=== PATIENT | female | born 1975 | race Caucasian/White ===

== ENCOUNTER 2019-10-18 12:17 | Emergency (ER) | payer BC, SELFPAY ==
--- NOTE | ~2019-10-18 | XR_ITS ---
XR knee LT 3V DATE: 10/18/2019 12:45 INDICATION: Fall. Medial and posterior knee pain TECHNIQUE: 3 views including crosstable lateral COMPARISON: None FINDINGS: Mild suprapatellar knee joint effusion. Diffuse osteopenia. Tricompartment osteoarthritis. Superior pole patellar enthesopathy. No fracture, dislocation, periosteal reaction or bone destruction, radiopaque intra-articular loose b zuleyka or chondrocalcinosis. IMPRESSION: Mild knee joint effusion Tricompartment osteoarthritis Reviewed, dictated and finalized at location A. R ASSOCIATE
[2019-10-18 12:36] VITALS: BP 194/108; PULSE 89; RESP 16; TEMP 36; O2SAT 100
--- NOTE | 2019-10-18 13:26 | ED.LOWEXIN ---
HPI - Extremity Injury (Lower) General Chief Complaint: Extremity Injury, Lower Stated Complaint: knee went out, fell Time Seen by Provider: 10/18/19 12:30 Source: patient Mode of arrival: wheelchair Limitations: no limitations History of Present Illness HPI Narrative: This is a 43 year old female that presents to the ER for left knee pain after an injury today. Reports she was standing in her room and her left knee gave out causing her to fall forward onto the bed. Reports she felt a pop in the knee. Reports since she has had increasing pain in the knee. Reports decreased ROM due to pain. Reports a history of meniscal repair to this knee. Denies hitting her head, loss of consciousness, other injuries, or numbness. Related Data Allergies Allergy/AdvReac Type Severity Reaction Status Date / Time insulin glargine Allergy Unknown Unknown Verified 10/18/19 12:39 Sulfa (Sulfonamide Allergy Unknown Unknown Verified 10/18/19 12:39 Antibiotics) zinc Allergy Unknown Unknown Verified 10/18/19 12:39 Review of Systems Review of Systems: Narrative: CONSTITUTIONAL: Denies fever MUSCULOSKELETAL: Reports joint pain, and myalgia. NEUROLOGIC: Denies numbness All systems reviewed & are unremarkable except as noted in HPI and below PMFSH Past Medical History Medical History (Updated 10/18/19 @ 14:14 by Norma Pagan PA-C) History of diabetes mellitus History of fibromyalgia History of gastroesophageal reflux (GERD) History of hypertension Surgical History Surgical History (Updated 10/18/19 @ 13:27 by Norma Pagan PA-C) Status post arthroscopic surgery of left knee Exam Narrative: Exam Narrative: GENERAL: Well-appearing, well-nourished, and in no acute distress. HEAD: Normocephalic, atraumatic. EYES: EOMI. CHEST: Clear to auscultation. No respiratory distress. No wheezes rales or rhonchi HEART: Regular rate and rhythm. No murmur heard. Normal peripheral pulses. EXTREMITIES: Normal range of motion. No edema, erythema or obvious deformity. Tender to palpation of the left medial joint line. Normal sensation. Normal DP pulses SKIN: Warm, dry, no rash. NEURO: No focal deficits. Alert and oriented x3. PSYCH: Normal mood and affect Course Vital Signs Vital signs: Vital Signs Temperature 96.8 F L 10/18/19 12:36 Pulse Rate 89 02/09/20 12:36 Respiratory Rate 16 10/18/19 12:36 Blood Pressure 194/108 H 10/18/19 12:36 Pulse Oximetry 100 10/18/19 12:36 Temperature 96.8 F L 10/18/19 13:58 Pulse Rate 89 10/18/19 12:36 Respiratory Rate 16 10/18/19 12:36 Blood Pressure 194/108 H 10/18/19 12:36 Pulse Oximetry 100 10/18/19 12:36 MDM - Extremity Injury (Lower) MDM Narrative Medical decision making narrative: Patient presents the emergency department for left knee injury today. Reports history of previous meniscal repair to this knee. Left knee x-ray shows a mild knee joint effusion and arthritis. Patient was updated on case findings. She did not fit in a knee immobilizer, so was given an Anthony wrap and crutches. She is to follow-up with orthopedics. She was given warnings to return to the ER Imaging Data Radiologist's impression: ITS Impressions Knee X-Ray 10/18/19 12:55 IMPRESSION: Mild knee joint effusion Tricompartment osteoarthritis Critical Care Time Critical Care Time Critical Care Time: No Discharge Plan Discharge Clinical Impression: Acute pain of left knee Patient Disposition: Home, Self-Care Condition: Stable Instructions: Knee Sprain (ED) Additional Instructions: Return to the emergency department if you experience fever, redness and swelling of your leg, or any other symptoms that are concerning to you Wear ANTHONY wrap and use crutches. No weight bearing left lower extremity. Rest. Elevate Tylenol as needed for pain. Cyclobenzaprine as needed for pain. Do not take this medication if you are going to drive as this can make you sleepy Follow up
[2019-10-18 13:58] VITALS: TEMP 36
[2019-10-18 14:20] VITALS: BP 178/100; PULSE 88; RESP 18; O2SAT 99
== END 2019-10-18 14:38 | disposition home or self-care (01) ==
PROVIDERS: Emergency Provider Emergency Medicine
DX: M25.562 Pain in left knee (principal); I10 Essential (primary) hypertension; E11.9 Type 2 diabetes mellitus without complications; M79.7 Fibromyalgia; K21.9 Gastro-esophageal reflux disease without esophagitis; M17.12 Unilateral primary osteoarthritis, left knee; W18.39XA Other fall on same level, initial encounter
CPT/HCPCS: 73562; 99283; A9270

== ENCOUNTER 2025-05-31 17:34 | Emergency (ER) | payer BC, SELFPAY ==
--- OUTSIDE RECORDS SUMMARY | 2024-05-21 03:40 | XMS_ITS ---
Author Organization [facility] Address [address] [place], [place] [id number] Care Team Providers Care Crop Or Grain Farmer Name Role Phone CARLOS ISABEL Unavailable [phone] Kota Gustafson Unavailable Unavailable REASON FOR VISIT *Diabetic foot exam check up Encounters Encounter Location Date Provider Diagnosis [facility] [place] [address] [place], [place] [id number] 05/21/2024 CARLOS ISABEL Plan Of Treatment No Information Progress Notes * Oscar LANDRYOB:1975 ([age] yo F)Acc No.[id number]:05/21/2024 Patient: Payton MARTINS Provider: Loretta Isabel DPM :1975 A ge:48 Y S ex:Female Date:05/21/2024 Address:[address] [facility] Subjective: * Chief Complaints: * 1 . *Diabetic foot exam check up. * Medical History: Objective: * Vitals: Assessment: Plan: * Treatment: * Billing Information: * Visit Code: * Procedure Codes: * Electronic signature of CARLOS ISABEL DPM on 05/31/2025 at 05:37 PM CDT Sign off status: Pending * Provider: Loretta Isabel DPM Date: 05/21/2024 Generated for Darwin fermin/Javy/eTjadsmitting on: 05/31/2025 05:37 PM CDT
--- NOTE | ~2025-05-31 | XR_ITS ---
Examination: XR chest 1V portable Clinical History: LE edema, SOB Comparison: 09/24/2017 Technique: Portable AP Findings: Heart size normal. Lungs clear. No acute bony abnormality. IMPRESSION: 1. No acute cardiopulmonary findings given portable technique. Reviewed, dictated and finalized at location R.
--- NOTE | ~2025-05-31 | US_ITS ---
LEFT LOWER EXTREMITY VENOUS DUPLEX Clinical History: edema, erythema COMPARISON: None TECHNIQUE: Grayscale, color, duplex/spectral Doppler sonography left leg FINDINGS/IMPRESSION: 1. DVT within femoral vein and profunda. 2. Remaining left leg veins patent without DVT. Reviewed, dictated and finalized at location R.
--- NOTE | ~2025-05-31 | NM_ITS ---
EXAMINATION: NM lung vent and perfusion DATE: 05/31/2025 22:14 INDICATION: Shortness of breath. Deep venous thrombosis. TECHNIQUE: 9.7 mCi xenon-133 by inhalation and 5.4 mCi Tc-99m MAA by intravenous route. Scintigraphic images of the chest were obtained. COMPARISON: FINDINGS: There is homogeneous radiotracer activity throughout the lungs on the single breath ventilation sequence. There is relatively homogeneous perfusion throughout the lungs. No discrete ventilation and perfusion mismatch is identified. IMPRESSION: 1. Normal study. Very low probability for pulmonary embolism. Reviewed, dictated and finalized at location A.
--- OUTSIDE RECORDS SUMMARY | 2025-05-31 17:37 | XMS_ITS | Encounter Summary ---
Author Organization [facility] Address [address] [place] [address] Care Team Providers Care Map Mounter Name Role Phone Yeimi gardner RN Unavailable Unavailab Jyotsna Paige RN Unavailable Unavailabl Kota Lorenz MD Primary Care Provider + [phone] Wero Segundo MD Unavailable [phone] Brayan Peters DPM Unavailable [phone] Nolberto Nguyen DPT Unavailable [phone] Encounter Details Date Type Department Care Team (Late st Contact Info) Description 05/31/2025 Documentation [facility] Diabetes and Nutrition [address] Social History Tobacco Use Types Packs/Day Years Used Date Smoking Tobacco: Former Vaping Smokeless Tobacco: Never Comments:Smoking History Pac ks/day: 1 Packs/ patient currently only vapes about 5 days a week Alcohol Use Standard Drinks/Week Comments Yes 0 (1 standard drink = 0.6 oz pur e alcohol) AUDIT-C Answer Date Recorded Frequency of Alcohol Consumption Not on file 06/14/2022 Q2: How many drinks containi ng alcohol do you have on a typical day when you are drinking? Patient does not drink Frequency of Binge Drinking Not on file 02/2022 PHQ-2 Answer Date Recorded PHQ-2 Total Score (If total score is 3 or more points, staff should administer the PHQ-9) 0 02/11/2025 Personal Safety Answer Date Recorded Have you ever been in or are you currently in a harmful physical or emotional relationship or is someone making you feel afraid or unsafe? 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 Per letter, she still needs one [facility] visit. Marta Adler RD,[place] documented in this encounter Plan of Treatment Not on file documented as of this encounter Visit Diagnoses Not on filedocumented in this encounter Care Teams Map Mounter Relationship Specialty Start Date End Date Kota Gustafson MD PCP - General 04/14/18 Yeimi Salinas, RN Registered Nurse Pain Management 09/03/17 Jyotsna Moore, RN Registered Nurse 12/02/17 Wero Segundo MD Consulting Physician Nephrology 06/06/18 Brayan Peters DPM Consulting Physician Orthotics 06/24/18 Nolberto Nguyen DPT [address] [facility] [address] Physical Therapist Physical Therapy 06/22/22 documented as of this encounter
--- OUTSIDE RECORDS SUMMARY | 2025-05-31 17:37 | XMS_ITS | Patient Health Record ---
Author Organization [facility] Address [address] [place], [place] [id number] Care Team Providers Care Senior Investment Manager Name Role Phone CARLOS VILLA Unavailable [phone] Kota Gustafson Unavailable Unavailable Allergies Allergen (clinical drug ingredient) Drug/Non Drug Allergy documented on EMR Reaction Allergy Type Onset Date Status Latex Latex Unknown Allergy Active Reason For Referral No Information Medications Medication SIG (Take, Route, Frequency, Duration) Notes Start Date End Date Status Levothyroxine Sodium Active Furosemide Active predniSONE 5 MG/5ML 5 mL Orally Once a day Active Ondansetron Active Methadone HCl Active Cosentyx Active Carvedilol Active Atorvastatin Calcium Active Omeprazole Active Cyclobenzaprine HCl Active Losartan Potassium A ctive Methotrexate Active hydroCHLOROthiazide Active Folic Acid Active cloNIDine Active Entresto Active Isosorbide Mononitrate ER Active HumaLOG Active hydrALAZINE HCl Acti ve Loratadine Active Triamcinolone & Lido-Prilo Active Plan Of Treatment No Information Insurance Providers Payer Name Payer Address Payer Phone Subscriber Number Group Number Insured Name Patient Relationship to Insured Coverage Start Date Coverage End Date [facility] ([facility]) ATTN CLAIMS [address] [place] [address] [id number] Payton Landry Self - patient is the insured Medical (General) History Surgical History Surgery Date(Month/Year) appendectomy Knee scope DNC
--- OUTSIDE RECORDS SUMMARY | 2025-05-31 17:37 | XMS_ITS | Clinical Summary ---
Author Organization [facility] Address [address] [place] [address] Phone Care Team Providers Care Power Plant Mechanic Name Role Phone Kota Gustafson MD Primary Care Provider Allergies Active Allergy Reactions Criticality Noted Date Comments Insulin Glargine Shortness of Breath,Swelling 0 04/17/2016 Sulfa Antibiotics Unknown Zinc Unknown Medications otherIndication s:humulin insulin 1 inj Indications: humulin insulin 1 inj Active lisinopril (PRINIVIL, ZESTRIL) 10 MG Tablet Active insulin lispro (HUMALOG) 100 UNIT/ML Solution by Subcutaneous route 3 times daily (after meals). Use as directed Active insulin NPH (HUMULIN N) 100 UNIT/ML Suspension 45 Units by Subcutaneous route 2 times daily (before meals). Active ibuprofen (MOTRIN) 600 MG Tablet Take 1 Tab by mouth every 6 hours as needed for up to 30 doses. 30 Tab 7 Active methocarbamol (ROBAXIN) 750 MG Tablet Take 1 Tab by mouth 4 times daily as needed for up to 30 doses. 30 Tab 7 Active HYDROcodone-janette taminophen (NORCO) 10-325 MG Tablet Take 1 Tab by mouth every 6 hours as needed for Pain. Active pregabalin (LYRICA) 150 MG Capsule Take 150 mg by mouth 2 times daily. 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 User may not have seen previous data. Height 175.3 cm (5' 9) 06/12/2017 8:25 PM CDT Simultaneous filing. User may not have seen previous data. Body Mass Index 40.61 06/12/2017 8:25 PM CDT Plan of Treatment Health Maintenance Due Date Last Done Comments Diabetes: Eye Exam 1975 Diabetes: Foot Exam 1975 Hepatitis C Virus (HCV) Screening 1975 TdaP Immunization 1975 Hepatitis B Immunization (1 of 3 - 19+ 3-dose series) 11/24/1995 Pneumococcal Immunization Combined (1 of 2 - PCV) 11/24/1995 Pap Smear 1997 Cervical Cancer Screening (CCS) 2006 HPV/Cotest 2006 Diabetes: Nephropathy Screening 04/17/2017 04/17/2016 Diabetes: Hemoglobin A1c 12/09/2018 018, 04/29/2018 Cologuard 2021 Colonoscopy 2021 Colorectal Cancer Screening 2021 Immunochemical Fecal Occult Blood 2021 Influenza Immunization (#1) 2025 SARS-COV-2 Immunization ( - season) 2025 Respiratory Syncytial Virus (RSV) Immunization (Adult) (1 - 1-dose 75+ series) 11/24/2051 Human Papillomavirus (HPV) Immunization Aged Out No longer eligible b ased on patient's age to complete this topic Meningococcal Immunization (ACWY) Aged Out No longer eligible b ased on patient's age to complete this topic Rotavirus Immunization Aged Out No lo nger eligible based on patient's age to complete this topic Procedures Procedure Name Priority Date/Time Associated Diagnosis Comments CMP (COMPREHENSIVE METABOLIC PANEL) STAT 04/17/2016 11:52 PM CDT from Last 3 Months or Most Recently Relevant to Health Maintenance Results * (ABNORMAL) CMP (Comprehensive Metabolic Panel) (04/17/2016 11:52 PM CDT) SODIUM 134 131 - 143 mmol/L 04/18/2016 12:22 AM CDT [facility] POTASSIUM 3.6 3.5 - 5.1 mmol/L 04/18/2016 12:22 AM CDT [facility] CHLORIDE 99(L) 100 - 110 mmol/L 04/18/2016 12:22 AM CDT [facility] CO2, VENOUS 28 22 - 32 mmol/L 04/18/2016 12:22 AM CDT [facility] ANION GAP 10.6 8.0 - 20.0 mmol/L 04/18/2016 12:22 AM CDT [facility] GLUCOSE 108(H) 70 - 105 mg/dL 04/18/2016 12:22 AM CDT [facility] BUN 9(L) 10 - 31 mg/dL 04/18/2016 12:22 AM CDT [facility] CREATININE, BLOOD 0.46(L) 0.60 - 1.30 mg/dL 04/18/2016 12:22 AM CDT [facility] BUN/CREATININE RATIO 20 12 - 20 ratio 04/18/2016 12:22 AM CDT [facility] TOTAL PROTEIN 7.5 6.0 - 8.3 g/dL 04/18/2016 12:22 AM CDT [facility] ALBUMIN 4.2 3.5 - 5.2 g/dL 04/18/2016 12:22 AM CDT [facility] A/G RATIO 1.3 1.0 - 2.0 04/18/2016 12:[address] [facility] CALCIUM 9.4 8.9 - 10.3 mg/dL 04/18/2016 12:[address] [facility] T BILI 0.2(L) 0.3 - 1.2 mg/dL 04/18/2016 12:[address] [facility] SGOT (AST) 14 1 - 32 U/L 04/18/2016 12:[address] [facility] SGPT (ALT) 15 1 - 33 U/L 04/18/2016 12:22 AM CDT [facility] ALKALINE PHOSPHATASE 71 35 - 105 U/L 04/18/2016 12:22 AM CDT [facility] GFR, EST. NONAFRICAN >60 >=60 04/18/2016 12:22 AM CDT [facility] GFR, EST. >60 >=60 04/18/2016 12:22 AM CDT [facility] Comment: Creatinine Clearance is the preferred criteria for selecting drug dose adjustments in renally impaired patients. The GFR is provided as additional pertinent clinical information. GFR is reported in mL/min/1.73 sq m. Blood specimen (specimen) Venipuncture / Unknown 04/17/2016 11:52 PM CDT 04/18/2016 12:04 AM CDT Eduin Duarte MD CHEMISTRY ORDERABLES Fin al Result [facility] [address] [place] [address] from Last 3 Months or Most Recently Relevant to Health Maintenance Insurance [facility] [[email or web address]] Care Teams Power Plant Mechanic Relationship Specialty Start Date End Date Kota Gustafson MD [address] [place] [address] PCP - General Internal Medicine 05/19/18
--- OUTSIDE RECORDS SUMMARY | 2025-05-31 17:37 | XMS_ITS | Encounter Summary ---
Author Organization [facility] Address [address] [place] [address] Phone Care Team Providers Care Animal Surgeon Name Role Phone No, Physician Primary Care Provider Unavailabl e No, Physician Primary Care Provider [phone] Unkown, Unknown Primary Care Provider Unavailabl e No, Physician Primary Care Provider [phone] Yemii Salinas RN Unavailable Unavailab Jyotsna Paige RN Unavailable Unavailabl e Kota Gustafson MD Primary Care Provider + [phone] Kota Gustafson MD Primary Care Provider + [phone] Wero Segundo MD Unavailable [phone] Wero Segundo MD Unavailable [phone] Brayan Peters DPSarah Unavailable [phone] Nolberto Nguyen DPT Unavailable [phone] Encounter Details Date Type Department Care Team (Late st Contact Info) Description 03/08/2011 Orders Only [facility] [address] [place] [address] Scanning, Provider Social History Tobacco Use Types Packs/Day Years Used Date Smoking Tobacco: Heavy Smoker Comments:Smoking History Pac ks/day: 1 Packs Alcohol Use Standard Drinks/Week Comments No 0 (1 standard drink = 0.6 oz pur e alcohol) Comments Unknown Sex and Gender Information Value Date Recorded Sex Assigned at Not on file Legal Sex Female 1:05 AM CERTIFIED JUVENILE PROBATION OFFICER Gender Identity Not on file Sexual Orientation Not on file documented as of this encounter Plan of Treatment Not on file documented as of this encounter Procedures Procedure Name Priority Date/Time Associated Diagnosis Comments SLEEP LAB/STUDY - RESULT 03/08/2011 documented in this encounter Results * SLEEP LAB/STUDY - RESULT (03/08/2011) us Provider Scanning Final Result documented in this encounter Visit Diagnoses Not on filedocumented in this encounter Additional Health Concerns Infection Onset Date Last Indicated Resolved Time COVID: Suspected 01/15/2022 01/15/2022 01/15/2022 3:49 PM CDT COVID: Suspected 09/09/2022 09/09/2022 09/09/2022 8:08 PM CERTIFIED JUVENILE PROBATION OFFICER documented as of this encounter Care Teams Animal Surgeon Relationship Specialty Start Date End Date NO, PHYSICIAN PCP - General 01/03/17 01/20/17 No, Physician PCP - General 01/21/17 01/27/17 Unkown, Unknown PCP - General 01/28/17 02/04/17 No, Physician PCP - General 02/05/17 04/07/18 Kota Gustafson MD PCP - General Internal Medicine 04/08/18 04/13/18 Kota Gustafson MD PCP - General 04/14/18 Yeimi Salinas, KAYDEN Registered Nurse Pain Management 09/03/17 Jyotsna Moore, RN Registered Nurse 12/02/17 Wero Segunod MD Consulting Physician Nephrology 06/06/18 Wero Segundo MD Consulting Physician Nephrology 06/06/18 06/06/18 Brayan Peters DPM Consulting Physician Orthotics 06/24/18 Nolberto Nguyen DPT [address] [place] [address] Physical Therapist Physical Therapy 06/22/22 documented as of this encounter
--- OUTSIDE RECORDS SUMMARY | 2025-05-31 17:37 | XMS_ITS | Encounter Summary ---
Author Organization [facility] Address [address] [place] [address] Phone Care Team Providers Care Engraver Automatic Name Role Phone Yeimi Salinas RN Unavailable Unavailab Jyotsna Paige RN Unavailable UnavailKota Escobar MD Primary Care Provider [phone] Wero Seugndo MD Unavailable [phone] Brayan Peters DPM Unavailable [phone] Nolberto Nguyen DPT Unavailable [phone] Encounter Details Date Type Department Care Team (Late st Contact Info) Description 08/20/2022 Orders Only [facility] [address] [place] [address] Scanning, Provider Social History Tobacco [...] points, staff should administer the PHQ-9) 0 08/10/2021 Comments No Sex and Gender Information Value Date Recorded Sex Assigned at Not on file Legal Sex Female 1:05 AM MARINE REPORTER Gender Identity Not on file Sexual Orientation Not on file documented as of this encounter Plan of Treatment Not on file documented as of this encounter Procedures Procedure Name Priority Date/Time Associated Diagnosis Comments SCAN - LABS 08/20/2022 documented in this encounter Results * SCAN - LABS (08/20/2022) us Provider Scanning Final Result documented in this encounter Visit Diagnoses Not on filedocumented in this encounter Additional Health Concerns Infection Onset Date Last Indicated Resolved Time COVID: Suspected 09/09/2022 09/09/2022 09/09/2022 8:08 PM MARINE REPORTER documented as of this encounter Care Teams Engraver Automatic Relationship Specialty Start Date End Date Kota Gustafson MD PCP - General 04/14/18 Yeimi Salinas, RN Registered Nurse Pain Management 09/03/17 Jyotsna Moore, RN Registered Nurse 12/02/17 Wero Segundo MD Consulting Physician Nephrology 06/06/18 Brayan Peters DPM Consulting Physician Orthotics 06/24/18 Nolberto Nguyen DPT [address] [place] [address] Physical Therapist Physical Therapy 06/22/22 documented as of this encounter
--- OUTSIDE RECORDS SUMMARY | 2025-05-31 17:38 | XMS_ITS | Clinical Summary ---
Author Organization [facility] Address [address] [place] [address] Care Team Providers Care Cost Analyst Name Role Phone Yeimi gardner RN Unavailable Unavailab Jyotsna Paige RN Unavailable Unavailabl Jc Lorenz MD Primary Care Provider [phone]- [phone] Wero Segundo MD Unavailable [phone] Brayna Peters DPM Unavailable [phone] Nolberto Nguyen DPT Unavailable [phone] Allergies Active Allergy Reactions Criticality Noted Date Comments Duloxetine Dizziness,Nausea & Vomiting Low 08/02/2020 Duloxetine Hcl Nausea only Low 05/24/2022 Dizziness Insulin Glargine Shortness of breath,Swelling High 04/17/2016 lantus Metformin Stomach upset Low 04/01/2023 Semaglutide Other (See comments),Nausea & Vomiting,Nausea only Low 03/18/2019 weakness Vomiting Sulfa (Sulfonamide Antibiotics) Sulfacetamide Sodium Unknown Sulfanilamide Other (See comments) Reaction: Unknown, Zinc Unknown Medications glucagon (glucagon) 1 mg kitIndications:Ty pe 2 diabetes mellitus with complication, with long-term current use of insulin (HCC) Use as directed for severe hypoglycemia 2 kit 2 08/02/20 20 Active insulin syringe-needle U-100 (Insulin Syringe) 0.5 mL 29 gauge x 1/2 syringe Use to inject Humalog Insulin per sliding scale. 100 each 03/02/20 22 Active predniSONE (DELTASONE) 5 mg tablet Take 1 tablet (5 mg) by mouth 2 (two) times a day 10/19/19 23 Active blood-glucose meter,continuous (Dexcom G7 Transformer Assembler) misc 1 Device continuously For 10 days e10.65 1 each 1 07/02/20 23 Active methadone (DOLOPHINE) 5 mg tablet TAKE 1/2 TO 1 TAB BY MOUTH THREE TIMES DAILY WITH TYLENOL FOR BAD PAIN CONTROL (REMEMBER ONLY TYLENOL FOR MILD PAIN) 11/21/19 24 Active traMADoL (ULTRAM) 50 mg tablet Take 1-2 tablets (50-100 mg total) by mouth every 8 (eight) hours as needed for pain 10/22/19 24 Active methotrexate, PF, 25 mg/mL preservative free injection 04/22/20 24 Active folic acid (FOLVITE) 1 mg tablet Take 1 tablet (1,000 mcg total) by mouth daily 02/18/20 24 Active cyclobenzaprine (FLEXERIL) 5 mg tablet Take 1 tablet (5 mg total) by mouth 3 (three) times a day as needed for muscle spasms 04/22/20 24 Active insulin syringe-needle U-100 1 mL 31 gauge x 5/16 syringe USE 1 SYRINGE ONCE A WEEK DIRECTED 03/26/20 24 Active hydroxychloroquin e (PLAQUENIL) 200 mg tablet Take 2 tablets (400 mg total) by mouth daily 07/10/20 24 Active insulin pump cart,auto,BT,G6/7 (Omnipod 5 G6-G7 Pods, Gen 5,) cartridge Use to continuously instil insulin, Change Omnipod everyday, Total daily dose 150 units 90 each 3 08/28/20 24 Active atorvastatin (LIPITOR) 20 mg tablet Take 1 tablet (20 mg total) by mouth daily 30 tablet 1 10/29/19 25 Active Dexcom G7 Sensor device Use 1 sensor continuously. Change every 10 days. 9 each 3 11/27/19 25 Active acetaminophen (TYLENOL) 500 mg tablet Take 1 tablet (500 mg total) by mouth 3 (three) times a day Active famotidine (PEPCID) 40 mg tablet Take 1 tablet (40 mg total) by mouth daily Active metoprolol XL (TOPROL-XL) 25 mg extended release tablet Take 1 tablet (25 mg total) by mouth daily 90 tablet 3 12/04/19 25 026 Active levothyroxine (SYNTHROID) 75 mcg tabletIndications :Acquired hypothyroidism Take 1 tablet (75 mcg total) by mouth safety technician before breakfast 90 tablet 1 01/16/20 25 Active insulin lispro (HumaLOG) 200 unit/mL (3 mL) pen for injection Use 200 units of Humalog U-200 insulin in Omnipod. Total daily dose 200 units. 180 mL 3 01/26/20 25 Active multivit-minerals /folic acid (MULTIVITAMIN GUMMIES ORAL) Take 2 each by mouth daily Active clobetasoL (CLOBEX) 0.05 % lotion APPLY A THIN LAYER TOPICALLY TO THE AFFECTED AREA(S) TWO TIMES DAILY 01/03/20 25 Active cloNIDine (CATAPRES) 0.2 mg tabletIndications :Hypertension associated with diabetes (HCC) Take 1 tablet (0.2 mg total) by mouth 2 (two) times a day 60 tablet 5 02/25/20 25 Active predniSONE (DELTASONE) 20 mg tablet Take 2 tablets (40 mg) by mouth 2 (two) times a day 02/06/20 25 Active omeprazole (PriLOSEC) 40 mg capsule Take 1 capsule (40 mg total) by mouth daily Active furosemide (LASIX) 40 mg tabletIndications :Edema, unspecified type Take 1 tablet (40 mg total) by mouth daily 30 tablet 3 05/13/20 25 Active potassium chloride ER (KLOR-CON) 20 mEq CR tablet Take 1 tablet (20 mEq total) by mouth daily 30 tablet 05/20/20 25 Active metOLazone (ZAROXOLYN) 2.5 mg tablet Take 1 tablet (2.5 mg total) by mouth daily 30 tablet 05/24/20 25 025 Active fluconazole (DIFLUCAN) 150 mg tablet Take one tab now. Repeat in 7 days if symptoms persist. 2 tablet 05/24/20 25 Active hydroCHLOROthiazi de 12.5 mg tabletIndications :Primary hypertension Take 2 tablets by mouth daily. 180 tablet 1 04/26/20 25 025 Discontinu ed(Alterna te therapy) cephalexin (KEFLEX) 500 mg capsuleIndication s:Left leg cellulitis Take 1 capsule (500 mg total) by mouth 3 (three) times a day for 10 days 30 capsule 05/14/20 25 025 potassium chloride ER (KLOR-CON) 20 mEq CR tablet Take 1 tablet (20 mEq total) by mouth daily 30 tablet 05/20/20 25 025 Discontinu ed(Reorder ) Active Problems Problem Noted Date Diagnosed Date Mass of soft tissue 02/13/2025 Assessment & Plan (02/13/2025 8:12 PM CDT): Patient has a mass on her back approximately T3 is very painful patient has a lift arms move is warm tender to touch. X-rays were taken confirming soft tissue mass will proceed and get an ultrasound also will proceed in referring this patient to general surgery. Patient also has a mass on right humerus posteriorly Injury of nose 08/14/2024 Assessment & Plan (08/14/2024 5:20 PM CASE ASSEMBLER): Patient's dog jumped on her hit her in the nose injured her nose. She has had some nosebleeds past few days on exam there is no displacement her nasal bone passages open evidence of previous bleed present self-limited condition patient is so advised this should resolve in terms of having recurrent nosebleeds. Open wound of right index finger 08/14/2024 Assessment & Plan (08/14/2024 5:22 PM CASE ASSEMBLER): Treatment as observation at this time no antibiotics. Keep wound clean she has no significant swelling no significant redness no neurovascular compromise full range motion of the finger. Acquired hypothyroidism 04/23/2024 Assessment & Plan (04/23/2024 12:09 PM CDT): This is a chronic condition which is not at goal of TSH between 0.3 to 4.2 mclUnits/ml Personally reviewed lab. Lab Results Component Value Date TSH 6.80 (H) 12/04/2023 TSH 3.30 01/24/2023 TSH 6.13 (H) 07/09/2022 continue Levothryoxine 75 mcg po daily in am Discussed the importance of taking Levothryoxine on a empty stomach, which means one hour before eating or two hours after eating. Discussed food in the stomach will interfere with absorption of Levothyroxine. Discussed Calcium, antacids and iron supplements will interfere with the absorption of Levothyroxine, encouraged to take these at a different time of the day. dexcom continuous glucose monitoring device 04/09 Assessment & Plan (07/30/2024 8:56 AM CASE ASSEMBLER): Continuous glucose monitor (cgm) applied from 07/17/2024 to 07/30/2024 This device was placed for monitor and treatment of blood sugar. Interpretation of data- average glucose 186, 472% time in range. 0 hypoglycemia. 53% hyperglycemia Assessment & Plan (04/23/2024 12:11 PM CDT): Continuous glucose monitor (cgm) applied from to 04/23/2024 This device was placed for monitor and treatment of blood sugar. Interpretation of data- average glucose 197, 42% time in range. 0 hypoglycemia. 58% hyperglycemia Skin ulcer of right great toe 10/26/2023 Assessment & Plan (10/26/2023 11:36 AM CASE ASSEMBLER): Also on right great toe refer to [facility] DCM (dilated cardiomyopathy) 02/06/2023 Assessment & Plan (04/24/2023 2:33 PM CDT): Powder Loader notes reviewed and appreciated discussed with this patient Entresto in the benefits of it which shoe laster is considering on the next visit at making a part of her therapy last ejection fraction was 41% patient did not describe me acute or distress with respect to breathing her activities certainly limited with her joint pains and obesity. Chronic systolic heart failure 02/06/2023 Constipation 12/22/2022 Assessment & Plan (12/22/2022 4:24 PM CDT): Patient complains considerable discomfort and constipation working on a few weeks the [id number] products do help her and she feels better once they work. This time I am starting on Linzess samples 145 mg daily. Patient give me a progress report on effectiveness of medication Cellulitis of right foot 12/07/2022 Assessment & Plan (04/24/2023 2:33 PM CDT): All Cerner great toe is resolving anticipate index 3 weeks it will be totally resolved healing is no strong evidence of active infection at this time Assessment & Plan (12/22/2022 4:15 PM CDT): Cellulitis over top of her foot resolve she is had a callus under the right great toe is very tender to touch to hold toe I suspect she may have some infection below the toe I think she needs possible debridement should refer to podiatry she is a diabetic on insulin pump. Assessment & Plan (12/07/2022 5:28 PM CDT): Cellulitis approximate one-week right foot foot swollen distal 1st medical great toe red blisters form some tenderness palpating. This is not gout. And some redness and irritation just above the right ankle is diabetic she can weight bear with reasonable comfort start on Keflex 500 mg q.i.d. flu can is given x1 day if needed the Keflex for 10 days follow-up visit in 1 week Ankylosing spondylitis 08/13/2022 Assessment & Plan (08/14/2024 5:19 PM CASE ASSEMBLER): Patient remains on Remicade from Rheumatology tolerating medications. Assessment & Plan (04/24/2023 2:38 PM CDT): Patient is under care of rheumatology she is on azathioprine , methotrexate. Injections of Tremtya every 2 months as well as taking tramadol. All this prescribe from rheumatology Assessment & Plan (12/22/2022 4:16 PM CDT): Patient's rheumatological therapy on hold right now secondary to some concerns with referrals. Assessment & Plan (08/13/2022 5:18 PM CASE ASSEMBLER): Patient's advised me the financial systems analyst made a diagnosis of ankylosis spondylitis and possible psoriatic arthritis. She was advised she does not have lupus.. He will be started on medications specifically for these disorders in next few weeks.. Patient is placed on diclofenac. Chronic renal failure, stage 3a 08/13/2022 Overview (10/26/2023): Patient followed by Dr. Dominic Segundo dredge operator supervisor Assessment & Plan (08/13/2022 5:20 PM CASE ASSEMBLER): Patient has had 11 g of protein in her urine. She is under care of Nephrology at this time No diagnosis on Adams I 07/13/2022 Primary hypertension 07/13/2022 Assessment & Plan (07/30/2024 8:39 AM CASE ASSEMBLER): This is a chronic condition which is not at goal upon arrival to the office. At goal after rest. States she has not been taking all of her blood pressure medications. Encouraged her to take her blood pressure medications as ordered. Goal is less than 140/90 Continue CARVEDILOL, CLONIDINE, HCTZ, HYDRALAZINE, ENTRESTO Encouraged to monitor weight and B/P at home. \ Assessment & Plan (04/24/2023 2:27 PM CDT): Blood pressure 148/84 improvement from previous visit patient's morbidly obese blood pressures are acceptable at this time she is multiple other risk factors going on including diabetes obesity significant stress which is improving Assessment & Plan (12/22/2022 4:16 PM CDT): Blood pressure remains reasonably good no change in therapy Assessment & Plan (12/07/2022 5:29 PM CDT): Blood pressure slightly elevated today for have a follow-up blood pressure in 1 week see how much of improvement occurred she is stay on the present medication she does have some discomfort right foot secondary to cellulitis. Assessment & Plan (09/16/2022 4:09 PM CASE ASSEMBLER): BP elevated at 178/94 (90), asymptomatic. No acute findings on exam other than sinusitis. Will increase clonidine to 0.2mg BID, continue all other meds as rxd. Avoid decongestant use. Low salt, low caffeine. Heart healthy exercise and weight loss encouraged. Obstructive sleep apnea 07/13/2022 Chronic cough 07/04/2022 Assessment & Plan (07/04/2022 4:09 PM CDT): See assessment and plan for asthma Patient requested refill on benzonatate Refill sent to pharmacy History of DVT (deep vein thrombosis) 07/04/2022 Assessment & Plan (07/04/2022 4:20 PM CDT): History of DVT in the setting of Lupus Patient reports bilateral lower extremity edema, but reports this is chronic - no acute changes suggestive of acute DVT Physical examination as documented Patient not taking antirheumatic drugs or following rheumatology at this time Will investigate for antiphospholipid syndrome as possible etiology as this can occur with lupus Labs on 06/23/2022 and 06/29/2022 most significant for elevated ESR, elevated lipids, elevated A1c, and elevated ferritin (possibly related to uncontrolled lupus, will have to rechecked once lupus is better controlled) - please refer to chart for specific labs/results Additional labs to investigate patient's complaints ordered as documented below Orders for AMS STAFF to arrange Echocardiogram, Chest Xray, Rosanne Scan, ProBNP, troponin I, d-dimer - shortness of breath, chest pain Lupus anticoagulant, anticardiolipin, [id number] I antibodies - history of DVT, lupus BMP in 1 week to recheck kidney function and potassium - hypertension Referral to pain management - fibromyalgia, chronic pain syndrome Referral to rheumatology - lupus, elevated ESR Orders for Aiden Gil to arrange Continue monitoring symptoms - if anything becomes acutely worse, please go to ER Follow up with pain management as recommended - office will call you, call our office if not heard from pain management in 2 weeks Follow up with rheumatology as recommended - office will call you, call our office if not heard from rheumatology in 2 weeks Follow up next week as scheduled with Dr. Gustafson or sooner if necessary Bilateral lower extremity edema 07/04/2022 Assessment & Plan (05/20/2025 4:57 PM CDT): Patient is seen 90 12/2024 for bilateral edema of the legs left worse than right. She was started on furosemide 40 mg daily. No improvement. Plans at this time increase her furosemide to 40 mg twice a day progress report in 4 days. Wear herself today as well as let me know overweight Saturday using the same scale.. The leg looks better she has less redness she is on antibiotics for cellulitis. Patient is advised me when she was taking methotrexate by mouth it was ineffective she now has giving herself injections at her joint pains have improved significantly. Concerned whether or not she is absorbing Lasix because of the amount of edema throughout her body including her gut she may have to go to furosemide 40 mg injections at home. Patient is given potassium 20 mEq daily. Assessment & Plan (08/13/2022 5:15 PM CASE ASSEMBLER): Bilateral edema is pretty much resolved diuretics at this point Assessment & Plan (07/04/2022 4:20 PM CDT): Chronic problem, uncontrolled Patient reports wearing compression stockings to assist with swelling - although, patient reports not having worn compression stockings recently d/t them cutting into my legs Patient reports that swelling is mildly worse as of late - also reports mild shortness of breath with exertion Physical examination as documented Recommended short course of furosemide, continued use of compression sleeves as tolerated, and elevation of lower extremities Labs on 06/23/2022 and 06/29/2022 most significant for elevated ESR, elevated lipids, elevated A1c, and elevated ferritin (possibly related to uncontrolled lupus, will have to rechecked once lupus is better controlled) - please refer to chart for specific labs/results Additional labs to investigate patient's complaints ordered as documented below Orders for AMS STAFF to arrange Echocardiogram, Chest Xray, Rosanne Scan, ProBNP, troponin I, d-dimer - shortness of breath, chest pain Lupus anticoagulant, anticardiolipin, [id number] I antibodies - history of DVT, lupus BMP in 1 week to recheck kidney function and potassium - hypertension Referral to pain management - fibromyalgia, chronic pain syndrome Referral to rheumatology - lupus, elevated ESR Orders for Aiden Gil to arrange Increase losartan to 100mg daily Monitor blood pressure - report readings consistently >160/90 or <90/60 Maintain low sodium diet Exercise as tolerated Start furosemide daily as needed for swelling - use for 1 week then discontinue, repeat labs in 1 week to recheck kidney function and potassium level Continue monitoring symptoms - if anything becomes acutely worse, please go to ER Follow up with pain management as recommended - office will call you, call our office if not heard from pain management in 2 weeks Follow up with rheumatology as recommended - office will call you, call our office if not heard from rheumatology in 2 weeks Follow up next week as scheduled with Dr. Gustafson or sooner if necessary Chest pain 07/04/2022 Assessment & Plan (07/16/2022 9:08 AM CASE ASSEMBLER): Visit for 07/13/2022, notes reviewed from 07/04/2022. Patient in addition having chest pain progressing over the past 2 months she is having palpitations frequently to chest pain and occurred the same time. Shortness of breath does not appear to be associated with palpitations will request a cardiac rn x2 weeks given the fact that she is having his discomfort a palpitations chest pain 3-5 times per day minimal. Previous EKG reviewed ossific ST changes. ProBNP was negative. Assessment & Plan (07/04/2022 4:20 PM CDT): Present for about 2 months, progressively worsening - see HPI for details Physical examination as documented Suspect this is related to uncontrolled Lupus, not taking any antirheumatic drugs or being managed by rheumatology - likely experiencing a Lupus flare as evidenced by recent ESR of 60 EKG in office - unremarkable, NSR Labs on 06/23/2022 and 06/29/2022 most significant for elevated ESR, elevated lipids, elevated A1c, and elevated ferritin (possibly related to uncontrolled lupus, will have to rechecked once lupus is better controlled) - please refer to chart for specific labs/results Additional labs to investigate patient's complaints ordered as documented below Orders for AMS STAFF to arrange Echocardiogram, Chest Xray, Rosanne Scan, ProBNP, troponin I, d-dimer - shortness of breath, chest pain Lupus anticoagulant, anticardiolipin, [id number] I antibodies - history of DVT, lupus BMP in 1 week to recheck kidney function and potassium - hypertension Referral to pain management - fibromyalgia, chronic pain syndrome Referral to rheumatology - lupus, elevated ESR Orders for Aiden Gil to arrange Increase losartan to 100mg daily Monitor blood pressure - report readings consistently >160/90 or <90/60 Maintain low sodium diet Exercise as tolerated Start prednisone as ordered - complete course, take with breakfast in the morning Continue pain medications as ordered Start furosemide daily as needed for swelling - use for 1 week then discontinue, repeat labs in 1 week to recheck kidney function and potassium level Continue monitoring symptoms - if anything becomes acutely worse, please go to ER Follow up with pain management as recommended - office will call you, call our office if not heard from pain management in 2 weeks Follow up with rheumatology as recommended - office will call you, call our office if not heard from rheumatology in 2 weeks Follow up next week as scheduled with Dr. Gustafson or sooner if necessary History of diverticulitis 10/18/2021 Assessment & Plan (10/18/2021 1:38 PM CASE ASSEMBLER): Patient having some abdominal pain all symptoms of diverticulitis. Up however she has a component of diarrhea at this time start on Lomotil 2.5 mg q.i.d. p.r.n. give her total 20 progress report later in a week. Lymphedema 08/11/2021 Assessment & Plan (08/11/2021 12:47 PM CASE ASSEMBLER): Right lower leg be persistently swollen consistent with lymphedema will refer to [facility] lymphatic[facility]lymphedema clinic SOB (shortness of breath) 08/02/2020 Assessment & Plan (12/22/2022 4:20 PM CDT): Pulmonary note reviewed follow-up CT scans on scheduled patient is also will be seeing Cardiology in the next 2 weeks she had a 41% ejection fracture. Patient's diabetic hypertensive morbidly obese Assessment & Plan (07/16/2022 9:13 AM CASE ASSEMBLER): Patient continues have shortness of breath. Been evaluated for chest pain. Chest x-ray possible interstitial lung disease or atypical pneumonia. Patient's shortness of breath present 2-3 minutes slowly increasing. Patient's peak flow was 550. Refer to pulmonary Assessment & Plan (07/04/2022 3:41 PM CDT): See assessment and plan for chest pain Assessment & Plan (08/02/2020 4:22 PM CASE ASSEMBLER): Patient is reporting chest pain and SOB with minimal activity. EKG done which shows NSR with no acute ST/T wave changes, unchanged from previous. There is concern with her reports of abdominal swelling and weight gain that this may be related to volume overload. We will do CXR to r/o acute volume overload. We will BNP to look for any signs of heart failure. She was encouraged to avoid any excess salt in her diet. Will continue HCTZ at this time. Pending results of testing will most like need additional diuretic therapy. She may also need echo to evaluate for any LV dysfunction and referral to cardiology Abdominal lump 08/02/2020 Assessment & Plan (02/13/2025 8:18 PM CDT): Patient complains of abdominal mass in right pelvic area. Morbidly obese questionable mass left lower quadrant on palpating proceed in getting a CT scan of her pelvis Assessment & Plan (08/02/2020 4:25 PM CASE ASSEMBLER): Patient is reporting feelings of abdominal swelling and distension. Given morbid obesity it is difficult to assess fluid status. She does however, have a 13lb weight gain since her last visit which may suggest fluid. We will do abdominal US to look for any ascites. We will await findings. Annual physical exam 04/29/2020 Assessment & Plan (10/26/2023 11:32 AM CASE ASSEMBLER): History and physical completed patient's health risk assessment health maintenance reviewed in addressed patient has multiple chronic health problems she had a care of multiple specialists including Rheumatology for ankylosis spondylitis endocrinology because of her diabetes type with insulin pump renal because of diabetic kidney disease chronic renal disease stage IIIA. Assessment & Plan (08/13/2022 5:14 PM CASE ASSEMBLER): 46-year-old lady here for annual exam she has multiple chronic health problems. Recently saw rheumatology with did not have lupus but instead has ankylosis spondylitis may have psoriatic arthritis. For a test pending. Patient also saw Dr. Segundo nephrology patient had Lujan g of protein early on laboratory studies. She has been diagnosed with stage II renal failure. Patient is now under care of Endocrinology again she utilizing insulin pump. And she has schedule at some point future to have GI bypass surgery her body mass index is 56.56 present weight 372 lb approximate 5 ft 7. Assessment & Plan (08/11/2021 12:46 PM CASE ASSEMBLER): Patient is here for annual exam not seen by me in least 14 months. She has multiple health problems which addressed during this visit.. Mammogram requested and abnormalities noted and she has been referred ultrasound-guided biopsy her breast. Patient under care of Endocrinology for diabetes. Assessment & Plan (04/29/2020 7:35 PM CDT): Patient physical complete health risk assessment health maintenance reviewed in addressed History of depressed bipolar disorder 04/29/2020 Assessment & Plan (04/24/2023 2:35 PM CDT): Patient describes her mood as being greatly improved she still has some anger she is able to deal with through walking lady herself until she can calm down and other methods she is learned through cognitive behavioral therapy. No psychiatric medications on record. Assessment & Plan (01/19/2022 12:55 PM CDT): Patient advised me that she has discontinue Fe she has had no alcohol for 4-5 month and has not smoked for 4-5 months Assessment & Plan (10/18/2021 1:34 PM CASE ASSEMBLER): Patient is not taking Cymbalta she is taking Lyrica 150 mg twice a day she reports that is maybe improvement in mood concentration is better activities daily living has improved. No crying spells no episodes of deshaun. Continue present therapy Assessment & Plan (08/11/2021 12:50 PM CASE ASSEMBLER): Patient question about Cymbalta at this time she states she can tolerated she is not taking anything for mood would like to resume. Assessment & Plan (08/02/2020 4:27 PM CASE ASSEMBLER): Patient was started on cymbalta at last visit but did not tolerate. Have discussed with Dr. Gustafson and recommends starting effexor nightly and up-titrating as tolerated and needed. Assessment & Plan (04/29/2020 7:40 PM CDT): Patient had treatments for depression and her behavior problems in childhood early teens.. She does not remember medications. He is depressed at this time she has some stress in her life she is a 20-year-old with the daughter 19 year or as minimal autism reported by the patient.. Patient's PHQ-9 score is 19. Start this patient on Cymbalta/duloxetine. Patient has a lot of back pain neuropathy symptoms as well as the depression which duloxetine is effective are indicated fall 3.. Start on 60 mg per day I will see her back in 6 weeks. Tinea cruris 04/29/2020 Assessment & Plan (04/29/2020 7:49 PM CDT): Patient has not had much success with Monistat I wrote a prescription for diclofenac 150 mg x 7 days patient also using nystatin powder. Hypertension associated with diabetes 03/10/2020 Assessment & Plan (08/14/2024 5:16 PM CASE ASSEMBLER): Blood pressure 134/82 Assessment & Plan (04/23/2024 12:04 PM CDT): This is a chronic condition which is at goal. Goal is less than 140/90 Continue carvedilol, clonidine, Lasix, hydralazine, hydrochlorothiazide, Entresto Encouraged to monitor weight and B/P at home. Encouraged to void caffeine and excessive alcohol consumption as this will elevate B/P Assessment & Plan (12/10/2023 3:18 PM CDT): This is a chronic condition which is at goal of less than 140/90 Personally reviewed labs. Continue HCTZ, clonidine, Lasix, hydralazine, sacubitril/valsartan, carvedilol Encouraged to monitor weight and B/P at home Encouraged to take medications as prescribed. Assessment & Plan (10/26/2023 11:33 AM CASE ASSEMBLER): Blood pressure is 130/78 patient is tolerating medications no change in therapy Assessment & Plan (07/02/2023 3:34 PM CDT): This is a chronic condition which is not at goal of less than 140/90 Personally reviewed labs. Continue hydralazine, HCTZ, Entresto, carvedilol, Lasix, clonidine Encouraged to monitor weight and B/P at home Encouraged to take medications as prescribed. States she is not taking medication as prescribed because it makes her too tired Assessment & Plan (10/24/2022 3:19 PM CASE ASSEMBLER): This is a chronic condition which is not at goal of less than 140/90 continue on clonidine, HCTZ, losartan States has not taken blood pressure medications today as she does not take them until 1:00 p.m.. Personally reviewed labs. Encouraged to void caffeine and excessive alcohol consumption as this will elevate B/P Encouraged to monitor weight and B/P at home Encouraged to take medications as prescribed. Assessment & Plan (07/23/2022 4:25 PM CASE ASSEMBLER): This is a chronic condition which is not at goal of less than 140/90 Personally reviewed labs. Continue on clonidine, lasix, HCTZ, losartanEncouraged to void caffeine and excessive alcohol consumption as this will elevate B/P Encouraged to monitor weight and B/P at home Encouraged to take medications as prescribed. Assessment & Plan (07/04/2022 4:19 PM CDT): Chronic problem, uncontrolled Taking losartan 50mg daliy, HCTZ 12.5mg daily, and clonidine 0.1mg daily - blood pressures have been consistently 180+ since 04/2022 Physical examination as documented Recommended increasing losartan to 100mg daily with follow up BMP in 1 week Labs on 06/23/2022 and 06/29/2022 most significant for elevated ESR, elevated lipids, elevated A1c, and elevated ferritin (possibly related to uncontrolled lupus, will have to rechecked once lupus is better controlled) - please refer to chart for specific labs/results Additional labs to investigate patient's complaints ordered as documented below Orders for AMS STAFF to arrange Echocardiogram, Chest Xray, Rosanne Scan, ProBNP, troponin I, d-dimer - shortness of breath, chest pain Lupus anticoagulant, anticardiolipin, [id number] antibodies - history of DVT, lupus BMP in 1 week to recheck kidney function and potassium - hypertension Referral to pain management - fibromyalgia, chronic pain syndrome Referral to rheumatology - lupus, elevated ESR Orders for Aiden Gil to arrange Increase losartan to 100mg daily Monitor blood pressure - report readings consistently >160/90 or <90/60 Maintain low sodium diet Exercise as tolerated Start furosemide daily as needed for swelling - use for 1 week then discontinue, repeat labs in 1 week to recheck kidney function and potassium level Continue monitoring symptoms - if anything becomes acutely worse, please go to ER Follow up with pain management as recommended - office will call you, call our office if not heard from pain management in 2 weeks Follow up with rheumatology as recommended - office will call you, call our office if not heard from rheumatology in 2 weeks Follow up next week as scheduled with Dr. Gustafson or sooner if necessary Assessment & Plan (05/04/2022 2:55 PM CDT): This is a chronic condition which is not at goal Goal is <140/90 Personally reviewed labs. Continue on losartan, HCTZ, clonidine. Avoid caffeine, caffeine will raise blood pressure and excessive alcohol consumption. Monitor your weight and B/P. Encouraged to take medications as prescribed. Assessment & Plan (01/19/2022 12:42 PM CDT): Hypertension very well controlled patient is tolerating medications no change in therapy Assessment & Plan (11/15/2020 4:33 PM CASE ASSEMBLER): Goal blood pressure is less than 140/85 Low salt diet was discussed andd recommended The importance of daily aerobic exercise was also emphasized. Continue current meds, including SLY-I or ARB, e.g. Losartan Assessment & Plan (08/26/2020 10:16 AM CASE ASSEMBLER): BP elevated today. ++ pain d/t fibromyalgia. Advised to take clonidine when she gets home. 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 Advised to check BP at that time. Assessment & Plan (08/02/2020 4:22 PM CASE ASSEMBLER): Blood pressure reasonably well controlled at today's visit will continue present regimen. Assessment & Plan (04/29/2020 7:42 PM CDT): Patient advised me that her blood pressure is going up in afternoon she has gotten readings as high as 200 systolic and 110 diastolic.. She is symptomatic with these blood pressure readings chest pressure and overall uncomfortable.. She takes her medicine twice a day and ventrally 2nd blood pressure medicine will kick in in lower pressure. She also will lie down this will help with her blood pressure. She is also advised me she is under stress with a 19-year-old daughter who is a risk challenging her.. Advised patient start clonidine/Catapres 0.1 mg which she has symptoms knows that her blood pressures up in afternoon.. To keep a track of her blood pressure readings using the clonidine. She continues all of her other blood pressure medicines was see her in 6 weeks. Assessment & Plan (04/15/2020 1:04 PM CDT): BP still elevated despite taking medication. Increase Losartan to 100 mg daily Increase hydrochlorothiazide to 25 mg daily Check home BP and follow up with PCP Assessment & Plan (03/10/2020 11:55 AM CDT): Asx hypertension. Restart losartan 50 mg. Check home BP daily. Schedule appt with PCP and nephrology this month. Follow up with me in one month. DASH diet provided. Needs to reduce sodium intake. Will check labs. Omnipod insulin pump 06/10/2018 Assessment & Plan (01/27/2025 1:12 PM CDT): This is a chronic condition which is worsening, inadequately controlled, not at goal. Download reviewed. From 01/14/2025 to 01/27/2025 Type of insulin pump- omnipod dash with humalog U200 Pump settings : Basal 0000-increased 2.2 units IC -5 ISF -20 Active insulin time 3hrs. TARGET GLUCOSE 90 Avg Total daily insulin- 80 units daily Avg daily basal -62 units (78%) Avg daily bolus -17 units (22%) Interpretation of data- In target range 17% without hypoglycemia. 83% hyperglycemia. Average glucose- 232 Assessment & Plan (07/30/2024 8:55 AM CASE ASSEMBLER): This is a chronic condition which is worsening, inadequately controlled, not at goal. Download reviewed. From 07/24/2024 to 07/30/2024 Type of insulin pump- omnipod dash with humalog U200 Pump settings : Basal 0000-increased 2.2 units IC -5 ISF -20 Active insulin time 3hrs. TARGET GLUCOSE 90 Avg Total daily insulin- 70 units daily Avg daily basal -52 units (75%) Avg daily bolus -17 units (25%) Interpretation of data- In target 47% without hypoglycemia. Average glucose- 186. 53% hyperglycemia. Assessment & Plan (04/23/2024 12:06 PM CDT): This is a chronic condition which is worsening, inadequately controlled, not at goal. Download reviewed. From 04/10/2024 to 04/23/2024 Type of insulin pump- omnipod dash with humalog U200 Pump settings : Basal 0000-increased 2.2 units IC -5 ISF -20 Active insulin time 3hrs. TARGET GLUCOSE 90 Avg Total daily insulin-59units daily Avg daily basal -45 units (77%) Avg daily bolus -23 nits (14%) Interpretation of data- In target 42% without hypoglycemia. Average glucose- 197. 58% hyperglycemia. Assessment & Plan (12/10/2023 3:23 PM CDT): This is a chronic condition which is worsening, inadequately controlled, not at goal. Download reviewed. From to 12/10/23 Type of insulin pump- omnipod dash with humalog U200 Pump settings : Basal 0000-2 IC -5 ISF -20 Active insulin time 3hrs. TARGET GLUCOSE 90 Avg Total daily insulin-78units daily Avg daily basal -50units (64%) Avg daily bolus -28 nits (36%) Interpretation of data- In target 24% without hypoglycemia. Average glucose- 226. 76% hyperglycemia. Assessment & Plan (07/02/2023 3:37 PM CDT): This is a chronic condition which is improving, inadequately controlled, not at goal. Download reviewed. Type of insulin pump- omnipod dash with humalog U200 Pump settings : Basal 0000-2 IC -5 ISF -20 Active insulin time 3hrs. TARGET GLUCOSE 90 Avg Total daily insulin-74 units daily Avg daily basal -47units (63%) Avg daily bolus - 27units (37%) Interpretation of data- In target 8% without hypoglycemia. Average glucose- 259. 92% hyperglycemia. Assessment & Plan (04/01/2023 7:35 PM CDT): This is a chronic condition which is improving, inadequately controlled, not at goal. Download reviewed. Type of insulin pump- omnipod dash with humalog. Will switch insulin to humalog u200. Will bring pump to office once she gets her u200 humalog and we will adjust settings Pump settings : Basal 0000-3.6--at max basal setting IC -5 ISF -20 Active insulin time 3hrs. TARGET GLUCOSE 90 Avg Total daily insulin-114 units daily Avg daily basal -83units (72%) Avg daily bolus - 32units (28%) Continuous glucose monitor (cgm) applied from 03/19/2023 to 04/01/2023 This device was placed for monitor and treatment of blood sugar. Interpretation of data- In target 3% without hypoglycemia. Average glucose- 268. 97% hyperglycemia. Will add Humalog U200 to omnipod in order to improve blood sugars. Assessment & Plan (10/24/2022 3:21 PM CASE ASSEMBLER): This is a chronic condition which is improving, inadequately controlled, not at goal. Download reviewed. Type of insulin pump- omnipod dash. Would like to proceed to Dexcom 7 when available Pump settings : Basal 0000-3.6--at max basal setting IC -5 ISF -20 Active insulin time 3hrs. TARGET GLUCOSE 90 Avg Total daily insulin-123 units daily Avg daily basal -83units (68%) Avg daily bolus - 40units (32%) Continuous glucose monitor (cgm) applied from 10/12/2022 to 10/25/2022 This device was placed for monitor and treatment of blood sugar. Interpretation of data- In target 8% without hypoglycemia. Average glucose- 230. Assessment & Plan (07/23/2022 4:29 PM CASE ASSEMBLER): This is a chronic condition which is uncontrolled with hyperglycemia, not at goal. Download reviewed. Type of insulin pump- omnipod Pump settings : Basal 0000-3.6 IC -5 ISF -20 Active insulin time 3hrs. TARGET GLUCOSE 90 Avg Total daily insulin-123 units daily Avg daily basal -81units (66%) Avg daily bolus - 41units (34%) Continuous glucose monitor (cgm) applied from 07/11/2022 to 07/24/2022 This device was placed for monitor and treatment of blood sugar. Interpretation of data- In target 0.4% without hypoglycemia. Average glucose- 3331. Started bydureon. Assessment & Plan (05/04/2022 3:00 PM CDT): This is a chronic condition which is uncontrolled with hyperglycemia, not at goal. Download reviewed. Type of insulin pump- [employer] 630G Pump settings : Basal 0000-3.40, 0600-3.60 IC -5 ISF -20 Active insulin time 3hrs. TARGET GLUCOSE 90-180 Avg Total daily insulin-89 units daily Avg daily basal -85 units (96%) Avg daily bolus - 4 units (4%) Set change every 6 days Dane change 3 days. Assessment & Plan (08/26/2020 10:18 AM CASE ASSEMBLER): Continue basal rate of 3 units per hour IC 5. Instructed to enter 20-45-60 grams depending on size of meals. SF 20 T 100 AI 3 Suspend on low set at 80. She is to upload pump in 2 weeks Assessment & Plan (04/15/2020 1:02 PM CDT): Increase basal rate to 3.0. Lower SF to 10. Change AI to 3 hours Assessment & Plan (03/10/2020 11:53 AM CDT): Increase basal to 2.8 units per hour. Lower target for correction to 100. Advised to enter correction for BG tid and for all po carbs. Assessment & Plan (01/16/2019 11:39 AM CDT): Add basal of 2.8 from 9 pm to 1 am. Change IC to 2.5, SF to 10, T to 110. Assessment & Plan (09/27/2018 12:52 PM CASE ASSEMBLER): Current settings appropriate. No change. Advised to use the extended boluse, either 50% at the meal and 50% over the next 2-3 hours. Assessment & Plan (06/10/2018 10:50 AM CDT): Decrease basal to 2.7 over 24 hours. Diabetic neuropathy 05/19/2018 Assessment & Plan (04/15/2020 1:09 PM CDT): Evaluation with neuro advised as gabapentin and amitriptyline not effects and she feels pain is interfering with ADL Assessment & Plan (05/19/2018 6:28 PM CDT): . 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 Review of her chart shows that her urine for microalbuminuria was 82 1 month ago is now 2289. Patient's serum creatinine 1 month ago was less than 1. Will make appropriate referral to Nephrology to manage this problem. Persistent microalbuminuria associated with type 2 diabetes mellitus 04/29/2018 Assessment & Plan (12/10/2023 3:18 PM CDT): This is a chronic condition which continues Continue to follow with Dr. Segundo for chronic kidney disease Assessment & Plan (08/13/2022 5:15 PM CASE ASSEMBLER): Patient is not under care of Endocrinology Dr. Lang/Twila Hsu nurse practitioner. And Dr. Dominic Segundo dredge operator supervisor Assessment & Plan (05/15/2022 5:43 PM CDT): discussed labs. Amb. Referral to Dr. Segundo for microalbuminurea. Latest Reference Range & Units 05/12/22 10:21 Albumin, Ur mg/L 3,619.3 Creatinine Ur mg/dL 74.7 Albumin Creatinine Ratio, Ur 1 - 29 mg/g 4,845 (H) Assessment & Plan (11/15/2020 4:34 PM CASE ASSEMBLER): The risk of progression to progressing to chronic kidney failure and ESR was discussed\ Adequate glycemic control was emphasized The patient is already on losartan Assessment & Plan (04/29/2018 3:54 PM CDT): Renal consultation Start Losartan Needs better DM control Mixed diabetic hyperlipidemi a associated with type 2 diabetes mellitus 04/29/2018 Assessment & Plan (01/27/2025 1:52 PM CDT): >>ASSESSMENT AND PLAN FOR HYPERLIPIDEMIA ASSOCIATED WITH TYPE 2 DIABETES MELLITUS (HCC) WRITTEN ON 09/27/2018 1:00 PM BY MAISHA VAZ NP Focus on diet and exercise. Assessment & Plan (01/27/2025 1:52 PM CDT): >>ASSESSMENT AND PLAN FOR HYPERLIPIDEMIA ASSOCIATED WITH TYPE 2 DIABETES MELLITUS (HCC) WRITTEN ON 01/16/2019 11:28 AM BY MAISHA VAZ NP Trigs elevated, LDL at goal. Needs to focus on reducing BG. Assessment & Plan (01/27/2025 1:52 PM CDT): >>ASSESSMENT AND PLAN FOR HYPERLIPIDEMIA ASSOCIATED WITH TYPE 2 DIABETES MELLITUS (HCC) WRITTEN ON 04/15/2020 1:05 PM BY MAISHA VAZ NP Start Atorvastatin 20 mg Assessment & Plan (01/27/2025 1:52 PM CDT): >>ASSESSMENT AND PLAN FOR HYPERLIPIDEMIA ASSOCIATED WITH TYPE 2 DIABETES MELLITUS (HCC) WRITTEN ON 04/29/2020 7:37 PM BY JC GUSTAFSON MD Patient under care of Endocrinology I reviewed most recent Endocrinology notes. She does have neuropathy electrical superintendent recommended she see the neurologist Dr. Rohan Bowles referral is being made Assessment & Plan (01/27/2025 1:52 PM CDT): >>ASSESSMENT AND PLAN FOR HYPERLIPIDEMIA ASSOCIATED WITH TYPE 2 DIABETES MELLITUS (HCC) WRITTEN ON 08/26/2020 9:29 AM BY MAISHA VAZ NP At goal on current medications. Continue statin therapy. Assessment & Plan (01/27/2025 1:52 PM CDT): >>ASSESSMENT AND PLAN FOR HYPERLIPIDEMIA ASSOCIATED WITH TYPE 2 DIABETES MELLITUS (HCC) WRITTEN ON 05/04/2022 2:56 PM BY TWILA HSU NP This is a chronic condition which is not at goal. Goal is less than 70. Personally reviewed lipid panel. Lab Results Component Value Date LDLCALC 79 10/31/2018 Encouraged to eat healthy, include fresh fruits and vegetables daily and avoid eating fried foods more than once per week. Encouraged to take medications as prescribed. Assessment & Plan (01/27/2025 1:52 PM CDT): >>ASSESSMENT AND PLAN FOR HYPERLIPIDEMIA ASSOCIATED WITH TYPE 2 DIABETES MELLITUS (HCC) WRITTEN ON 07/16/2022 9:08 AM BY JC GUSTAFSON MD Patient's blood pressure has improved. Field Party Manager notes reviewed most recent glucose levels 9.9/glucose average 235. Patient also was will be seeing Nephrology in the next 2 weeks patient has evidence of lupus nephritis laboratory studies shows 11 g of protein a 24 urine collection compared to 3.2 g years ago. Assessment & Plan (01/27/2025 1:52 PM CDT): >>ASSESSMENT AND PLAN FOR HYPERLIPIDEMIA ASSOCIATED WITH TYPE 2 DIABETES MELLITUS (HCC) WRITTEN ON 12/10/2023 3:18 PM BY TWILA HSU NP This is a chronic condition which is not at goal of LDL less than 70 Continue atorvastatin Encouraged to eat healthy, include fresh fruits and vegetables daily and avoid eating fried foods more than once per week. Encouraged to take medications as prescribed. Assessment & Plan (01/27/2025 1:52 PM CDT): >>ASSESSMENT AND PLAN FOR HYPERLIPIDEMIA ASSOCIATED WITH TYPE 2 DIABETES MELLITUS (HCC) WRITTEN ON 04/23/2024 12:04 PM BY TWILA HSU NP This is a chronic condition which is not at goal . Goal is LDL less than 70 Continue atorvastatin Encouraged to eat healthy, include fresh fruits and vegetables daily and avoid eating fried foods more than once per week. Assessment & Plan (07/30/2024 8:38 AM CASE ASSEMBLER): This is a chronic condition which is not at goal . Goal is LDL less than 70 Continue atorvastatin Encouraged to eat healthy, include fresh fruits and vegetables daily and avoid eating fried foods more than once per week. Class 3 severe obesity due t o excess calories with serious comorbidity and body mass index (BMI) of 50.0 to 59.9 in adult 04/29/2018 Assessment & Plan (01/27/2025 1:53 PM CDT): >>ASSESSMENT AND PLAN FOR OBESITY, MORBID, BMI 50 OR HIGHER (CMS/HCC) ([facility]) WRITTEN ON 09/27/2018 12:53 PM BY MAISHA VAZ NP Provided with resources for wt loss surgery programs. Assessment & Plan (01/27/2025 1:53 PM CDT): >>ASSESSMENT AND PLAN FOR OBESITY, MORBID, BMI 50 OR HIGHER (CMS/HCC) ([facility]) WRITTEN ON 01/16/2019 11:30 AM BY MAISHA VAZ NP Importance of following diet and exercising discussed. Health food options discussed. Needs to make better effort. Bariatric surgery discussed. Assessment & Plan (01/27/2025 1:53 PM CDT): >>ASSESSMENT AND PLAN FOR OBESITY, MORBID, BMI 50 OR HIGHER (CMS/HCC) ([facility]) WRITTEN ON 04/29/2020 7:38 PM BY JC GUSTAFSON MD Morbid obesity patient's referred to [facility]. He has given some thought to it in at this point she is willing to accept this is a part of therapy did may improve her overall health including diabetes in joint pains. Assessment & Plan (01/27/2025 1:53 PM CDT): >>ASSESSMENT AND PLAN FOR OBESITY, MORBID, BMI 50 OR HIGHER (CMS/HCC) ([facility]) WRITTEN ON 05/04/2022 2:47 PM BY TWILA HSU NP This is a chronic condition which is improving 16lb weight loss since last office visit. Maybe related to high a1c levels. Assessment & Plan (01/27/2025 1:53 PM CDT): >>ASSESSMENT AND PLAN FOR OBESITY, MORBID, BMI 50 OR HIGHER (CMS/HCC) (HCC) WRITTEN ON 07/16/2022 9:11 AM BY JC GUSTAFSON MD Patient is under care of [facility] in [facility] bariatric surgery Department anticipate getting bariatric surgery in the next 30-90 days depending on her surgical clearance. Multiple health problems lupus, lupus nephritis,diabetes not controlled which may very. Well improve with bariatric surgery Assessment & Plan (01/27/2025 1:53 PM CDT): >>ASSESSMENT AND PLAN FOR OBESITY, MORBID, BMI 50 OR HIGHER (CMS/HCC) (HCC) WRITTEN ON 07/23/2022 4:23 PM BY TWILA HSU NP This is a chronic condition which is worsening Weight increased by 13lbs since her last office visit encouarged weight loss and exercise Does not tolerate ozempic. Will start bydureon as she reports loosing 70lbs on it in the past. Assessment & Plan (01/27/2025 1:53 PM CDT): >>ASSESSMENT AND PLAN FOR OBESITY, MORBID, BMI 50 OR HIGHER (CMS/HCC) (HCC) WRITTEN ON 08/13/2022 5:16 PM BY JC GUSTAFSON MD Patient under care [facility] in [place] area tricks surgery. 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 Assessment & Plan (01/27/2025 1:53 PM CDT): >>ASSESSMENT AND PLAN FOR OBESITY, MORBID, BMI 50 OR HIGHER (CMS/HCC) (HCC) WRITTEN ON 04/01/2023 7:41 PM BY TWILA HSU, COLE This is a chronic condition which is worsening. 6lb weight gain since last office visit. Encouraged follow up with bariatric surgeon again. Assessment & Plan (01/27/2025 1:53 PM CDT): >>ASSESSMENT AND PLAN FOR OBESITY, MORBID, BMI 50 OR HIGHER (CMS/HCC) ([facility]) WRITTEN ON 04/24/2023 2:29 PM BY JC GUSTAFSON MD Patient is encouraged again to follow through with bariatric surgery she has communicated with him in the past multiple health problems she is trying to address it once.. Understands the bariatric surgery would benefit her in weight loss would help her in many ways hypertension diabetes joint problems. Assessment & Plan (01/27/2025 1:53 PM CDT): >>ASSESSMENT AND PLAN FOR OBESITY, MORBID, BMI 50 OR HIGHER (CMS/HCC) ([facility]) WRITTEN ON 12/10/2023 3:22 PM BY TWILA HSU NP This is a chronic condition which is worsening 13 lb weight gain since last office visit Encouraged healthy eating Activity is limited due to arthritis Assessment & Plan (01/27/2025 1:53 PM CDT): >>ASSESSMENT AND PLAN FOR OBESITY, MORBID, BMI 50 OR HIGHER (CMS/HCC) ([facility]) WRITTEN ON 04/23/2024 12:04 PM BY TWILA HSU NP This is a chronic condition which continues One lbs. Weight loss since last office visit Encouraged healthy eating which includes a low carb diet. Avoiding processed foods, sweets and fried foods. Encouraged 30 minutes of walking at least 5 days per week Discussed that exercise can be broken down into small sessions- for example 2- 15 minutes sessions or 3- 10 minutes sessions. Assessment & Plan (08/14/2024 5:19 PM CASE ASSEMBLER): Endocrinology notes reviewed patient continues to lose weight or Mounjaro. She has consider weight loss surgery. Insurance denied surgery according to the patient in the last several months Assessment & Plan (07/30/2024 8:40 AM CASE ASSEMBLER): This is a chronic condition which continues to improve 9lbs. Weight loss since last office visit Encouraged healthy eating which includes a low carb diet. Avoiding processed foods, sweets and fried foods. Encouraged 30 minutes of walking at least 5 days per week Discussed that exercise can be broken down into small sessions- for example 2- 15 minutes sessions or 3- 10 minutes sessions. Chronic pain syndrome 04/16/2018 Assessment & Plan (03/09/2022 4:37 PM CDT): Patient a flare for low back pain I gave her a 12 tramadol several weeks to months ago she is having more pain amended give her 20 tramadol. Major part of problem she is morbidly obese body mass index of 55 Assessment & Plan (04/16/2018 1:36 PM CDT): Patient goes to the [facility] Clinic at [facility] Dr. Pizano she is on hydrocodone for chronic pain mainly over knee she does have a diagnosis of fibromyalgia and she also takes Lyrica. History of lupus 04/16/2018 Assessment & Plan (04/29/2020 7:43 PM CDT): Patient advised me her electrical superintendent suggested she see Dr. Coronado because of changes in her rashes and more joint pain referral rheumatology made. Assessment & Plan (04/16/2018 1:37 PM CDT): Patient states she has a history of lupus she was never treated this typically for this she had had an appointment with the Endocrinology but because of insurance issues did not follow through on this. She is planning on make an appointment with an electrical superintendent in the near future. I did no lab work to pursue this diagnosis. Migraine with aura 04/16/2018 Assessment & Plan (04/16/2018 1:43 PM CDT): Patient migraine headaches in frequently she uses ibuprofen this works sometimes she has used Excedrin migraine which works about 30% of the time. It past she used the nasal spray sumatriptan which worked about is 50-60% of the time. The cost of sumatriptan became issue. Will discuss on next visit resuming possible sumatriptan type products by mouth. Primary osteoarthritis of left knee 02/11/2017 Type 2 diabetes mellitus wit h hyperglycemia, with long-term current use of insulin 06/01/2016 Assessment & Plan (08/14/2024 5:20 PM CASE ASSEMBLER): Field Party Manager notes reviewed from 07/30/2024. Patient is making positive progress regarding diabetes. Assessment & Plan (07/30/2024 8:38 AM CASE ASSEMBLER): This is a chronic condition which is improving but not at goal . Goal is less than 7%. Personally reviewed most recent A1c - Lab Results Component Value Date HGBA1C 7.6 07/30/2024 Personally reviewed POC blood sugar- at goal of 80-180 Lab Results Component Value Date POCGLU 109 07/30/2024 Medication- continue Omnipod Dash insulin pump/ Dexcom 7- with humalog u200 insulin. basal 0000-increase 2.2, carb ratio-5, sens- 20 target - 90-110 A1-3. Start mounjaro 2.5mg weekly. Did not tolerate ozempic due to nausea/vomiting, Metformin = stomach cramps Monitor blood sugar continuously with dexcom cgm. Encouraged annual eye exam. Dilated eye screening was completed in the office Monofilament foot exam completed. Protective senses -intact eGFR- 74 Kidney function- at goal Urine microalbumin/creatinine ratio - elevated, not at goal. Goal is <30. Continue CARVEDILOL, CLONIDINE, HCTZ, HYDRALAZINE, ENTRESTO Assessment & Plan (04/23/2024 12:03 PM CDT): This is a chronic condition which is has slightly worsened, not at goal . Goal is less than 7%. Personally reviewed most recent A1c - Lab Results Component Value Date HGBA1C 8.4 04/23/2024 Personally reviewed POC blood sugar- not at goal of 80-180 Lab Results Component Value Date POCGLU 249 04/23/2024 Medication- continue Omnipod Dash insulin pump/ Dexcom 7- with humalog u200 insulin. basal 0000-increase 2.2, carb ratio-5, sens- 20 target - 90-110 A1-3. Continue Bydureon to help reduce insulin resistance. Did not tolerate ozempic. Metformin = stomach cramps Monitor blood sugar continuously with cgm. Encouraged annual eye exam. Monofilament foot exam completed. Loss of protective senses eGFR- 74 Kidney function-abnormal, sees Dr. Segundo for Nephrology Urine microalbumin/creatinine ratio - not at goal. Goal is <30 Continue carvedilol, clonidine, Lasix, hydralazine, hydrochlorothiazide, Entresto Assessment & Plan (12/10/2023 3:18 PM CDT): This is a chronic condition which is inadequately controlled, worsening not at goal of less than 7%. Personally reviewed most recent A1c - Lab Results Component Value Date HGBA1C 8.2 (H) 12/04/2023 Personally reviewed POC blood sugar- not at goal 80-180 Lab Results Component Value Date POCGLU 223 12/10/2023 Medication- continue Omnipod Dash insulin pump/ Dexcom 7- with humalog u200 insulin. basal 0000-2, carb ratio-5, sens- 20 target - 90-110 A1-3. Continue Bydureon to help reduce insulin resistance. Will proceed to upgrade with Omnipod OP5 Monitor blood sugar continuously with cgm. Encouraged annual eye exam. Personally reviewed CMP eGFR- 71 Kidney function- normal Urine microalbumin/creatinine ratio - not at goal <30. Patient follows with Dr. Segundo for Nephrology treated with HCTZ, clonidine, Lasix, hydralazine, sacubitril/valsartan, carvedilol B/P today- at goal of <140/90. continue HCTZ, clonidine, Lasix, hydralazine, sacubitril/valsartan, carvedilol Personally reviewed lipid panel. Not at Goal of less than 70. Continue atorvastatin Assessment & Plan (10/26/2023 11:35 AM CASE ASSEMBLER): Patient continues to follow-up with endocrinology diabetes management [facility]. Patient is making some improvement according to the most recent notes. HgbA1c June of 2023 10.8 previous year in June 2022 HgbA1c was 9.9 Assessment & Plan (07/02/2023 3:35 PM CDT): This is a chronic condition which is inadequately controlled , improving not at goal of less than 7%. Personally reviewed most recent A1c - Lab Results Component Value Date HGBA1C 7.8 07/02/2023 Personally reviewed POC blood sugar- at goal 80-180 Lab Results Component Value Date POCGLU 144 07/02/2023 Medication- Omnipod insulin pump/ Dexcom 7- with humalog u200 insulin she is under tell me about how she was given a [id number] basal 0000-2, carb ratio-5, sens- 20 target - 90-110 A1-3. Continue Bydureon to help reduce insulin resistance. Did not tolerate ozempic. Metformin = stomach cramps Monitor blood sugar continuously with dexcom 7 sensor. Encouraged annual eye exam. Monofilament foot exam completed. loss of protective senses. Personally reviewed CMP eGFR-86 Kidney function- normal Urine microalbumin/creatinine ratio - not at goal <30 treated with hydralazine, HCTZ, Entresto, carvedilol, Lasix, clonidine B/P today- not at goal of <140/90. continue hydralazine, HCTZ, Entresto, carvedilol, Lasix, clonidineACE/ARB Personally reviewed lipid panel. Not at Goal of less than 70. Not on statin therapy Assessment & Plan (04/01/2023 7:36 PM CDT): This is a chronic condition which is inadequately controlled , stable, not at goal of less than 7%. Personally reviewed most recent A1c - Lab Results Component Value Date HGBA1C 8.6 04/01/2023 Personally reviewed POC blood sugar- not at goal 80-180 Lab Results Component Value Date POCGLU 289 04/01/2023 Medication- Continue Omnipod insulin pump/ Dexcom 6- basal 0000-3.6, carb ratio- 5, sens- 20 target - 90-180 A1-3. Continue Bydureon to help reduce insulin resistance. Will switch insulin to Humalog u200 to improve control. Monitor blood sugar continuously with dexcom 6 sensor. Encouraged annual eye exam. Monofilament foot exam completed. protective senses intact Personally reviewed CMP eGFR- 76 Kidney function- normal Urine microalbumin/creatinine ratio - not at goal <30 treated with losartan, carvedilol, clonidine, furosemide, hctz B/P today- not at goal of <140/90. continue losartan, carvedilol, clonidine, furosemide, hctz Personally reviewed lipid panel. Not at Goal of less than 70. Not on statin therapy. Assessment & Plan (10/24/2022 3:18 PM CASE ASSEMBLER): This is a chronic condition which is improving, inadequately controlled. not at goal of less than 8%. Due to health conditions and elevation of a1c. Personally reviewed most recent A1c - Lab Results Component Value Date HGBA1C 8.5 10/24/2022 Personally reviewed POC blood sugar- Lab Results Component Value Date POCGLU 207 10/24/2022 not at goal 80-180 Medication- Continue omnipod dash insulin delivery system. Basal settings are maxed out. Monitor blood sugarcontinuously with Dexcom 6 sensor. Encouraged annual eye exam. Monofilament foot exam completed. loss of protective senses. Treated with Lyrica Urine microalbumin/creatinine ratio - not at goal <30 treated with clonidine, lasix, HCTZ, losartan. Sees Dr. Segundo for Nephrology Personally reviewed CMP GFR- 68 Kidney function- normal, abnormal B/P today- not at goal of <140/90. continue on clonidine, HCTZ, losartan States has not taken blood pressure medications today as she does not take them until 1:00 p.m.. Encouraged her to take her medication as soon as she gets home. Personally reviewed lipid panel. Not at Goal of less than 70. Not on statin therapy Assessment & Plan (07/23/2022 4:25 PM CASE ASSEMBLER): This is a chronic condition which isout of control worsening not at goal of less than 8%. Due to health conditions and elevation of a1c. Personally reviewed most recent A1c - Lab Results Component Value Date HGBA1C 9.9 (H) 07/09/2022 Personally reviewed POC blood sugar- Lab Results Component Value Date POCGLU 269 07/23/2022 not at goal 80-180 Medication- Continue omnipod insulin delivery system. Pump adjsuted Monitor blood sugarcontinuously with Dexcom 6 sensor. Encouraged annual eye exam. Monofilament foot exam completed. loss of protective senses. Treated with Lyrica Urine microalbumin/creatinine ratio - not at goal <30 not treated with clonidine, lasix, HCTZ, losartan Personally reviewed CMP GFR- 68 Kidney function- normal, abnormal B/P today- not at goal of <140/90. continue on clonidine, lasix, HCTZ, losartan Personally reviewed lipid panel. Not at Goal of less than 70. Not on statin therapy Assessment & Plan (05/04/2022 3:05 PM CDT): This is a chronic condition which is uncontrolled and not at goal due to lack of bolusing and lack of monitoring blood sugars. Personally reviewed most recent A1c - Lab Results Component Value Date HGBA1C 11.4 05/04/2022 goal less than 7% Personally reviewed blood sugar- Lab Results Component Value Date GLUCOSE 200 (H) 08/02/2020 not at goal 80-180 Medication- Continue medtronic insulin pump. Will try and obtain omnipod and dexcom is covered by insurance Monitor blood sugar 4 times a day. She has a guardian sensor but does not wear it as she feels it is not accurate. Encouraged annual eye exam. Monofilament foot exam completed, loss of protective senses. Treated with Lyrica Urine microalbumin/creatinine ratio - Latest Reference Range & Units 03/17/20 10:47 Microalbumin, ur See Note: mg/dL >600.0 MicroalbumPersonally reviin/creat ratio <30 mcg/mg creat COMMENT ONLY ! THE URINE ALBUMIN VALUE IS GREATER THAN 600 mg/dL THEREFORE WE ARE UNABLE TO CALCULATE EXCRETION AND/OR CREATININE RATIO. !: Data is abnormal not at goal <30 not treated with SLY/ARB Reviewed BUN, creatinine, GFR-121 Kidney function- normal, B/P today- not at goal. Goal is <140/90 and as close to 120/80 as possible. continue on losartan, HCTZ and catapress Personally reviewed lipid panel. Goal of less than 70. Not at goal. Not on a statin Discussed elevated a1c level. She verbalized she is aware of the complications related to diabetes. Assessment & Plan (03/09/2022 4:33 PM CDT): Patient again is referred to Endocrinology she has a insulin pump she has not seen electrical superintendent in over year. Type 1 diabetic morbidly obese Assessment & Plan (01/19/2022 12:47 PM CDT): Patient did not see the electrical superintendent because of insurance issues. She is on insulin pump it to my knowledge does not give her glucose readings. Advised very strongly to get in to see electrical superintendent she has lost 31 lb on purpose. I gave her sample of the [employer] Gigi 2 CGM for her to monitor over the next 2 weeks. Patient call me in 2 weeks I will given her the results of the CGM. She understands that I will not be managing type 1 diabetes. Into getting contact with the electrical superintendent. Assessment & Plan (11/17/2021 11:39 AM CASE ASSEMBLER): Patient has insulin pump she has not seen Endocrinology for close to a year I refer strongly recommend she get back and see them. Assessment & Plan (08/11/2021 12:48 PM CASE ASSEMBLER): Diabetes managed by endocrinology patient is on insulin pump. Assessment & Plan (11/15/2020 4:32 PM CASE ASSEMBLER): Hba1c was Lab Results Component Value Date HGBA1C 10.4 11/15/2020 today, indicating poor DM control Goal blood sugars in the 120-150 range , with Hb1c under 7.0 % was explained 1800 calorie, consistent carb diet recommended. No more than 30-45 grams of carbs per meal recommended, as well as avoiding high concentrated sweet drinks . 25-45 min daily exercise, combining both aerobic and resistance exercise recommended. The need to monitor blood glucose before meals and bedtime was discussed when she is not using the CGMS was discussed I also emphasized to the patient to bolus at meal times, even if not eating, with correction factor Basal rates were adjusted Basal rates increased: 12am 3.4 6am 3.6 Prevention and treatment of hyypoglcyemia discussed. Assessment & Plan (08/26/2020 10:19 AM CASE ASSEMBLER): Has not entered in settings to new pump appropriately. She is only running basal with few random manual boluses. She has been instructed to enter all food and BG at least tid. Demonstrates appropriate ability to fill and insert infusion set. Understands concepts of basal vs. Bolus and is able to enter BG and carbs into pump. Has been provided with contact information for insulin pump fuels sales representative and how to reach our office after hours if any issues arise with BG. Has injectable basal insulin at home and understands to contact office in the event of pump failure so that appropriate basal dose can be determined. Advised follow up appt in office in one to two weeks so settings can be evaluated and adjusted as indicated. Total face to face time = 60 minutes Greater than 50% of visit was spent counseling pt. Counseling consisted of filling of infusion set, entering carbs and BG levels, troubleshooting hyperglycemia, importance of follow up appointment in 2 weeks. Assessment & Plan (04/15/2020 1:08 PM CDT): Continues to have elevated BG in 200's. Will increase basal rate and SF. She will be getting Medtronic 670 soon as it is completely covered by insurance. Will continue to adjust pump settings as appropriate. Assessment & Plan (03/10/2020 11:59 AM CDT): A1c worsening at 8.4. Not compliant with taking medication or with diet. Pattern of elevated BG throughout the day. Will adjust pump settings. Emphasized risks of hyperglycemia and hypertension. Importance of taking meds as prescribed, regular follow up. Will check labs. See pt back in 4 weeks. BG goals reviewed. Consider GLP1 or SGLT2 based on lab results. Assessment & Plan (01/16/2019 11:38 AM CDT): A1c increased to 7.7. Will adjust pump settings. Start Ozempic a 0.25 mg once a week on the same day. After one month, increase to 0.5 and hold there. BG goals reviewed. Assessment & Plan (09/27/2018 12:59 PM CASE ASSEMBLER): A1c greatly improved to 6.8 without hypoglycemia. BG goals reviewed. Encouraged to continue to focus on diet and carb counting. Expect that wt gain is due in part to improved glycemic control. Assessment & Plan (06/10/2018 10:52 AM CDT): A1c has improved 3% from 11.3 to 8.3 in 2 months on pump. Pattern is very stable. Doing well with pump. Will adjust basal rate to prevent hypoglycemia. Basal vs bolus and BG goals reviewed. Advised to call if she continues to have hypoglycemia or notices trend becomes more elevated after adjustments today. Assessment & Plan (05/19/2018 2:50 PM CDT): Demonstrates appropriate ability to fill and insert infusion set. Understands concepts of basal vs. Bolus and is able to enter BG and carbs into pump. Has been provided with contact information for insulin pump fuels sales representative and how to reach our office after hours if any issues arise with BG. Has injectable basal insulin at home and understands to contact office in the event of pump failure so that appropriate basal dose can be determined. Advised follow up appt in office in one to two weeks so settings can be evaluated and adjusted as indicated. Time of appt = 60 minutes Time spent on education = 60 minutes Assessment & Plan (04/29/2018 3:53 PM CDT): Hba1c was Lab Results Component Value Date HGBA1C 11.3 04/29/2018 today, indicating poor DM control 1800 calorie, consistent carb diet recommended 30 min daily exercise, combining both aerobic and resistance exercise is strongly recommended and needed as part of diabetes management plan. The need to monitor blood glucose before meals and bedtime was discussed. Take prandial insulin before meals based on carb intake and blood glucose readings. Prevention and treatment of hyypoglcyemia discussed. Tresiba 70 units daily NOvolog 34 U + correctional scale Insulin pump recommend Will try to start . Also CGM with DEXCOM Assessment & Plan (04/16/2018 1:39 PM CDT): Patient became diabetic approximately 27 years old she is diagnosed with type 2 diabetes from the very beginning. Patient's 17 at the time of diagnosis in weight 160 lb. According to the notes from the electrical superintendent She has been out of medicine for probably 6 months. In problems with her insurance coverage. Reviewed her chart last hemoglobin HgbA1c on record listed in [facility] hemoglobin HgbA1c of 13.4 January of 2016. Patient is seen electrical superintendent at that time. None refer her back to Dr. MEYER is she now has very good insurance the on insulin she is taking is very close if not over 200 units per day. Patient describes taking Humulin N/NPH 45 units twice a day and NovoLog aspart 35 units twice a day. Patient was given samples basal insulin tresiba, and NovoLog aspart. Fructosamine level , urine for microalbuminuria, HgbA1c as well. Patient advised again to follow with Endocrinology. Accu-Chek meter was given. Bronchial asthma 06/01/2016 Assessment & Plan (07/04/2022 4:19 PM CDT): Chronic problem, uncontrolled Patient only taking albuterol inhaler as needed - reports requiring albuterol inhaler 1-2 times daily Physical examination as documented Educated patient that use of albuterol inhaler more than twice weekly indicates poor control of asthma Recommended initiation of ICS for maintenance Labs on 06/23/2022 and 06/29/2022 most significant for elevated ESR, elevated lipids, elevated A1c, and elevated ferritin (possibly related to uncontrolled lupus, will have to rechecked once lupus is better controlled) - please refer to chart for specific labs/results Additional labs to investigate patient's complaints ordered as documented below Orders for AMS STAFF to arrange Echocardiogram, Chest Xray, Rosanne Scan, ProBNP, troponin I, d-dimer - shortness of breath, chest pain Lupus anticoagulant, anticardiolipin, [id number] I antibodies - history of DVT, lupus BMP in 1 week to recheck kidney function and potassium - hypertension Referral to pain management - fibromyalgia, chronic pain syndrome Referral to rheumatology - lupus, elevated ESR Orders for Aiden Gil to arrange Start Asmanex inhaler (steroid inhaler) as ordered - this is a daily maintenance inhaler, rinse mouth after each use to prevent thrush Continue albuterol inhaler as needed for shortness of breath/wheezing Start prednisone as ordered - complete course, take with breakfast in the morning Continue pain medications as ordered Continue monitoring symptoms - if anything becomes acutely worse, please go to ER Follow up with pain management as recommended - office will call you, call our office if not heard from pain management in 2 weeks Follow up with rheumatology as recommended - office will call you, call our office if not heard from rheumatology in 2 weeks Follow up next week as scheduled with Dr. Gustafson or sooner if necessary Assessment & Plan (04/16/2018 1:16 PM CDT): . Patient's history asthma is aggravated by hot weather and exercise or increased activity. Given his vela heat she has had use the albuterol HFA inhaler at least twice a week.. She has never been hospitalized for asthma she is otherwise stable she responds albuterol use in relieving her symptoms. Epilepsy 06/01/2016 Assessment & Plan (04/16/2018 1:18 PM CDT): History of epilepsy this started in her teen years. Patient states the medication meter seizures worse. Patient is on Lyrica was not aware the Lyrica is a anti seizure medication. Dominic is prescribed for chronic pain problems. She has been seizure free for several years. Fibromyalgia 05/31/2016 Assessment & Plan (07/04/2022 4:19 PM CDT): Chronic problem, uncontrolled Physical examination as documented Taking pregabalin and celecoxib as prescribed with some relief - also takes Tylenol as needed, has previously been given tramadol as well with some relief Suspect part of patient's uncontrolled pain is related to uncontrolled lupus Patient currently not seeing pain management or rheumatology - will refer Will have staff send 1 week supply of tramadol 50mg PRN per patient request Also recommended oral steroids for probably lupus flare Labs on 06/23/2022 and 06/29/2022 most significant for elevated ESR, elevated lipids, elevated A1c, and elevated ferritin (possibly related to uncontrolled lupus, will have to rechecked once lupus is better controlled) - please refer to chart for specific labs/results Additional labs to investigate patient's complaints ordered as documented below Orders for AMS STAFF to arrange Echocardiogram, Chest Xray, Rosanne Scan, ProBNP, troponin I, d-dimer - shortness of breath, chest pain Lupus anticoagulant, anticardiolipin, [id number] I antibodies - history of DVT, lupus BMP in 1 week to recheck kidney function and potassium - hypertension Referral to pain management - fibromyalgia, chronic pain syndrome Referral to rheumatology - lupus, elevated ESR Orders for Aiden Gil to arrange Start prednisone as ordered - complete course, take with breakfast in the morning Continue pain medications as ordered Continue monitoring symptoms - if anything becomes acutely worse, please go to ER Follow up with pain management as recommended - office will call you, call our office if not heard from pain management in 2 weeks Follow up with rheumatology as recommended - office will call you, call our office if not heard from rheumatology in 2 weeks Follow up next week as scheduled with Dr. Gustafson or sooner if necessary Chronic pain of left knee 05/31/2016 Assessment & Plan (04/16/2018 1:34 PM CDT): Patient advised me she is under care of orthopedic surgeon with [facility] he is advised her she needs a total knee replacement. Surgery will not be done she lose more weight. Positive antinuclear antibody 05/29/2016 Resolved Problems Problem Noted Date Diagnosed Date Resolved Date Mass of right forearm 02/13/20252024 Assessment & Plan (02/13/2025 8:11 PM CDT): Soft tissue mass right forearm freely movable tender to touch recent onset. X- rays of the right forearm Cellulitis of right index finger 08/14/2024 08/14/2024 Acute non-recurrent maxillary sinusitis 09/16/2022 12/22/2022 Assessment & Plan (09/16/2022 4:15 PM CASE ASSEMBLER): URI symptoms for 10 days. Went to ER 3 days ago and tested negative for COVID, FLU, and RSV. Workup was negative. Given Tussionex which she has been unable to get at pharmacy. Maxillary tenderness and clear mid ear effusion on L, significant clear PND. No other acute finding on exam. Likely viral, will rx Benzonatate as needed for cough, and prednisone burst for sinus pressure-educated her this will raise her blood sugars. Keep follow with Pulm in 2 weeks. Discussed antihistamine use (zyrtec/michael) to help dry up mucous. Tylenol/Ibuprofen as needed for pain. Increase fluids (water) Cool mist humidifier at night Use sinus rinses to help flush bacteria and help with congestion. Encouraged honey, marshmallows, or chloraseptic to help coat throat. Call with any worsening or persistent symptoms. Lupus 07/04/2022 08/13/2022 Assessment & Plan (07/04/2022 4:20 PM CDT): Chronic problem, uncontrolled Patient not taking antirheumatic drugs or following a financial systems analyst Suspect patient is having a lupus flare as evidenced by recent elevated ESR of 60 Physical examination as documented Recommended steroids and referral to rheumatology Labs on 06/23/2022 and 06/29/2022 most significant for elevated ESR, elevated lipids, elevated A1c, and elevated ferritin (possibly related to uncontrolled lupus, will have to rechecked once lupus is better controlled) - please refer to chart for specific labs/results Additional labs to investigate patient's complaints ordered as documented below Orders for AMS STAFF to arrange Echocardiogram, Chest Xray, Rosanne Scan, ProBNP, troponin I, d-dimer - shortness of breath, chest pain Lupus anticoagulant, anticardiolipin, [id number] antibodies - history of DVT, lupus BMP in 1 week to recheck kidney function and potassium - hypertension Referral to pain management - fibromyalgia, chronic pain syndrome Referral to rheumatology - lupus, elevated ESR Orders for Aiden Gil to arrange Start prednisone as ordered - complete course, take with breakfast in the morning Continue pain medications as ordered Continue monitoring symptoms - if anything becomes acutely worse, please go to ER Follow up with pain management as recommended - office will call you, call our office if not heard from pain management in 2 weeks Follow up with rheumatology as recommended - office will call you, call our office if not heard from rheumatology in 2 weeks Follow up next week as scheduled with Dr. Gustafson or sooner if necessary Leg wound, right, initial encounter 03/09/2022 08/13/2022 Assessment & Plan (03/09/2022 4:36 PM CDT): Patient dog ran across in front of her shoes has scratched her leg over week ago tetanus shot was updated today. Leg is not infected should heal appropriately patient so advised no follow-up indicated. Viral URI with cough 01/15/2022 022 Assessment & Plan (01/15/2022 4:38 PM CDT): Patient presents with sore throat, hoarseness, runny itchy eyes and congestion x 3 days. She reports recent ill contact of her grandson. Her flu, covid and strep test were negative. Symptoms and exam findings suggestive of viral URI. Symptom management encouraged as outlined in AVS. She is to call or return later this week if worsening or persistent symptoms. Viral conjunctivitis of both eyes 01/15/2022 01/19/2022 Assessment & Plan (01/15/2022 4:40 PM CDT): Patient has reports of matting and discharge from bilateral eyes. She reports itching and discomfort as well. On exam clear discharge and erythema of conjunctiva noted. Most likely viral in nature given above symptoms. Encouraged warm compresses, wiping with new clean towels, will send pataday eye drops for itching and she will call with any worsening or changing symptoms. Acute cystitis without hematuria 11/16/2021 01/19/2022 Assessment & Plan (11/17/2021 11:37 AM CASE ASSEMBLER): Urgency frequency dysuria without hematuria.. Start this patient on ciprofloxacin 500 mg twice a day 10 days Trauma 10/18/2021 08/13/2022 Assessment & Plan (10/18/2021 1:36 PM CASE ASSEMBLER): Recent fall at home in this no patient complains of pain for lumbar area abdominal on right side x-rays of lumbar area failed to reveal any fractures or dislocations.. Patient's advised she will be hurting for several weeks. Anti-inflammatory medicines as needed. Diabetic ulcer of left foot associated with type 2 diabetes mellitus, with necrosis of muscle ([facility]) 05/19/2018 08/11/2021 Assessment & Plan (08/11/2021 12:47 PM CASE ASSEMBLER): Diabetes managed by endocrinology. Assessment & Plan (05/19/2018 6:29 PM CDT): Patient ultrasound of foot today was inform she is probably to tendon rupture and possible necrosis. She is a type 1 diabetic and is high risk for multiple complications I referred her back to her her lens silverer today. She will be seen today. Morbid obesity 04/16/2018 04/24/2023 Assessment & Plan (03/09/2022 4:37 PM CDT): Patient advised me that her surgeon bariatric is referred her to [facility] for further therapy given her size he needs referral from a primary care physician which will make Assessment & Plan (01/19/2022 12:46 PM CDT): Patient is seeing a bariatric surgeon. yan in [place], [place]. [facility]. Her weight is down 31 lb since November of 2020. Meals a day she is going to the DM 3 times a week a 30 minutes at a time and she is utilizing are 30 g protein drinks. She advised me she has been approved for bariatric surgery. He has see a psychiatrist prior to her surgery. She has to be off smoking for least 2 months prior to surgery. Patient advised me she has stop smoking over 3 months ago Assessment & Plan (11/15/2020 4:33 PM CASE ASSEMBLER): Diet and exercise were discussed. 1200 Calorie diet advised 45-60 min aerobic / resistance exercise most days of the week recommended. Bariatric surgery medically indicated The patient seems to agree. Referral for the bariatric center [facility] was sent Assessment & Plan (08/26/2020 9:34 AM CASE ASSEMBLER): Continued noncompliance with diet discussed. Assessment & Plan (08/02/2020 4:23 PM CASE ASSEMBLER): Patient has morbid obesity which most likely contributes to her a majority of her symptoms which include pain, HTN, DM, and SOB. Weight loss encouraged and patient is planning to do video visit with insurance to explore gastric surgery options. Assessment & Plan (04/15/2020 1:03 PM CDT): Continue to emphasize importance of diet and exercise Assessment & Plan (03/10/2020 11:54 AM CDT): Wt increased d/t lack of compliance with diet. Importance of following diet and exercising discussed. Assessment & Plan (04/16/2018 1:27 PM CDT): Obesity body mass index of 42.09 weight 285 lb height 5 ft 9. Patient forms me maximum weight was 476 lb this was in 2006. Lost weight by eating less. She has been at this weight for least a year. I discussed with her briefly possible gastric bypass surgery but I do not think she is a candidate at this time she has some abdominal symptoms very suggestive IBS. Referral to GI made. Generalized abdominal pain 04/16/2018 0 01/19/2022 Assessment & Plan (11/17/2021 11:37 AM CASE ASSEMBLER): Patient's history of diverticulitis she is having some generalized abdominal pain consistent with previous episodes of diverticulitis. Having some diarrhea with this at times. A give her a trial of ciprofloxacin. Assessment & Plan (04/16/2018 1:28 PM CDT): Patient's abdominal pain every day several years. His abdominal pain is associated with frequent bowel movements occasionally she has out rate diarrhea. She has least 10 bowel movements per day and she describes considerable amount of bloating. She has tried anti diarrhea medicines and probiotics neither helped her. I am refer her to GI further evaluation. Is not my opinion this lady had the neuropathy of the GI system secondary from diabetes. However it is possible this cause. Current smoker 05/31/2016 01/19/2022 Assessment & Plan (04/16/2018 1:40 PM CDT): Patient smokes a half pack cigarettes per day will address this on the next visit. Encounters Date Type Department Care Team Description 05/31/2025 Documentation [facility] [address] 05/28/2025 1:00 PM CDT Ancillary Procedure [facility] [address] [place] [address] Encounter for screening mammogram for malignant neoplasm of breast 05/24/2025 Telephone [facility] [address] [place] [address] Jc Gustafson MD Swelling 05/20/2025 11:00 AM CDT Office Visit [facility] [address] [place] [address] Jc Gustafson MD Bilateral lower extremity edema (Primary Dx) 05/20/2025 Telephone [facility] [address] [place] [address] Jc Gustafson MD 05/14/2025 Telephone [facility] [address] [place] [address] Yaneth Gutiérrez RN 05/13/2025 2:30 PM CDT Office Visit [facility] [address] [facility] [address] [place] [address] Jc Gustafson MD Class 3 severe obesity due to excess calories with serious comorbidity and body mass index (BMI) of 50.0 to 59.9 in adult (Primary Dx); Edema, unspecified type 05/04/2025 9:00 AM CDT Clinical Support [facility] [address] [place] [id number] Morbid obesity (HCC) (Primary Dx); BMI 50.0-59.9, adult (HCC); Obstructive sleep apnea; Primary hypertension; Type 2 diabetes mellitus with diabetic neuropathy, with long-term current use of insulin (HCC); Mixed hyperlipidemia 04/06/2025 Telephone [facility] [address] [facility] [address] [place] [address] Jc Gustafson MD Medication Update 03/29/2025 1:00 PM CDT Office Visit [facility] [address] [facility] [address] [place] [address] Jc Gustafson MD Class 3 severe obesity due to excess calories with serious comorbidity and body mass index (BMI) of 50.0 to 59.9 in adult (Primary Dx); Cellulitis of left lower extremity 03/18/2025 10:10 AM CDT Office Visit [facility] [address] [facility] [address] [place] [address] Warren Badillo MD Neck swelling (Primary Dx) 03/17/2025 8:30 AM CDT Office Visit [facility] [address] [place] [address] Medical Office Building [address] [place] [address] Jing Mullins NP Type 2 diabetes mellitus with hyperglycemia, with long-term current use of insulin (HCC); Persistent microalbuminuria associated with type 2 diabetes mellitus (HCC); Hypertension associated with diabetes (HCC); Hyperlipidemia associated with type 2 diabetes mellitus (HCC); Other diabetic neurological complication associated with type 2 diabetes mellitus (HCC); Acquired hypothyroidism; Class 3 severe obesity due to excess calories with serious comorbidity and body mass index (BMI) of 50.0 to 59.9 in adult; Omnipod insulin pump 03/09/2025 Telephone [facility] [address] [place] [phone] Yaneth Gutiérrez RN 03/03/2025 Results Follow-Up [facility] [address] [place] [phone] Jc Gustafson MD Upper Extremity Right Limited from Last 3 Months Immunizations Immunization Administration Dates Next Due Influenza, Split 05/10/2010 Influenza, Trivalent, IM (MDV) 12/22/2015 Influenza, Unspecified 08/14/2024(Deferred: Lisa ent Refused) Pneumococcal Conjugate Pcv20 08/13/2022 Pneumococcal Polysaccharide PPV23 06/09/2008 Tdap 03/09/2022 Surgical History Surgery Date Site/Laterality Comments APPENDECTOMY 2011 Appendectomy OTHER SURGICAL HISTORY D&C APPENDECTOMY Appendectomy OTHER SURGICAL HISTORY 2000 : 21.5 hr labor BREAST BIOPSY 08/21/2021 Left DILATION AND CURETTAGE OF UTERUS Medical History Medical History Date Comments Hyperlipidemia Hyperlipidemia Hx Other Medical CVA (Stroke) Diabetes mellitus (HCC) Diabetes Seizure disorder (HCC) Seizure d isorder Hx Other Medical Headache, migra ine Sleep apnea 2008 sleep apnea Asthma Asthma Cerebrovascular accident (CVA) (HCC) 06/15/1995 Cerebrovascular accident Anemia Anemia Hx Other Medical ; Outc ome: 37W0D week 7lb(s) 9 oz Female Gastroparesis Hypertension Hypertension, tr eated by PCP Morbid obesity (HCC) 04/16/2018 Depression Type 2 diabetes mellitus Joint pain Gastroparesis Migraine Stroke (HCC) Lymphedema Lupus Morbid obesity (HCC) 04/16/2018 BMI 50.0-59.9, adult ([facility]) 06/14/2022 Family History Medical History Relation Name Comments Hyperlipidemia Brother 1 High choleste rol; Hypertension Brother 2 Hypertension; Allergies Father Allergies; Anemia Father Anemia; Asthma Father Asthma; Coronary artery disease Father Andrew nary artery disease; Diabetes Father Diabetes mellit us; Hypertension Father Hypertension; Kidney disease Father Renal disease ; Other Father agent orange; Seizures Father Seizure disorde r; Sleep apnea Father Sleep apnea; Stroke Father Stroke; Breast cancer Maternal Grandmother Cancer -breast; Depression Maternal Grandmother Depress ion; Diabetes Maternal Grandmother Diabete s mellitus; Hypertension Maternal Grandmother Hyperte nsion; Allergies Mother Allergies; Asthma Mother Asthma; Diabetes Mother Diabetes mellit us; Hypertension Mother Hypertension; Relation Name Status Comments Brother 1 Brother 2 Father Alive Maternal Grandmother Mother Alive Social History Tobacco Use Types Packs/Day Years Used Date Smoking Tobacco: Former Vaping Smokeless Tobacco: Never Tobacco Cessation:Counseling Given: Not Answered Comments:Smoking History Packs/day: 1 Packs/ patient currently only vapes about [...] on file Legal Sex Female 1:05 AM CASE ASSEMBLER Gender Identity Not on file Sexual Orientation Not on file Obstetrics History Para Term AB IAB SAB Ectopic Multiple Livin g Live Births 1 Last Filed Vital Signs Vital Sign Reading Time Taken Comments Blood Pressure 150/80 05/20/2025 10:55 AM CDT Pulse 110 05/20/2025 10:55 AM CDT Temperature 36.3 C (97.3 F) 05/20/2025 10:55 AM CDT Respiratory Rate 16 05/20/2025 10:55 AM CDT Oxygen Saturation 95% 05/20/2025 10:55 AM CDT Inhaled Oxygen Concentration - - Weight 179.6 kg (396 lb) 05/28/2025 1:23 PM CDT Height 172.7 cm (5' 8) 05/28/2025 1:23 PM CDT Body Mass Index 60.21 05/28/2025 1:23 PM CDT Plan of Treatment Health Maintenance Due Date Last Done Comments Zoster Vaccine (1 of 2) 11/24/1995 Cervical Cancer Screening 07/10/2016 07/10/2015 Colon Cancer Screening-Colonoscopy 06/11/20212010 Regular Well Visit/Exam 18-64 10/24/2024, 08/13/2022, 08/10/2021, Additional history exists Influenza Vaccine (#1) 2025 12/22/2015, 2009 Hemoglobin A1C 05/28/2025 11/25/2024, 07/11, 04/23/2024, Additional history exists Dilated Eye Exam 07/30/2025 07/30/2024, 10/30/2022 Foot Exam 07/30/2025 07/30/2024, 04/09, 07/23/2022, Additional history exists Lipid Panel 11/25/2025 11/25/2024, 11/08, 06/23/2022, Additional history exists eGFR 11/25/2025 11/25/2024, 11/08, 12/04/2023, Additional history exists Albumin Creatinine Ratio, Urine 01/27/2026 01/27/2025, 12/12/2023, 05/12/2022, Additional history exists Depression Screening 02/11/2026 02/11/2025, 08/10/2021, 04/29/2020, Additional history exists Breast Cancer Screening-Mammogram 05/28/2026 05/28/2025, 04/02/2023, 08/10/2021 DTaP/Tdap/Td Vaccine (2 - Td or Tdap) 03/09/2032 03/09/2022 Pneumococcal vaccine <65 Completed 08/13/2022, 1009/2007 Hepatitis B Screening Completed 02/12/2025 Hepatitis C Screening Completed 02/12/2025 Medical Devices Implanted Type Area Debit Agent Device Identifier Shelf Expiration Date Model / Serial / Lot Bard Peripheral Vascular [id number] Ultraclip Bard 17ga 10cm 2 Trigger Permanent Ultrasound - [id number] - [id number] Implanted:Qty: 1 on 08/21/2021 by Sara Hernadez MD at [facility] Breast Left: Breast Bard Peripheral V[employer] 01/05/2024 [id number] / [id number] / Procedures Procedure Name Priority Date/Time Associated Diagnosis Comments SCREENING MAMMOGRAM BILATERAL W WAGNER Schedule Routine, Read Routine (OP Routine) 05/28/2025 1:24 PM CDT Encounter for screening mammogram for malignant neoplasm of breast HEPATITIS C ANTIBODY Routine 02/12/2025 11:07 AM CDT Need for hepatitis C screening test ALBUMIN CREATININE RATIO, URINE Routine 01/27/2025 1:52 PM CDT Type 2 diabetes mellitus with hyperglycemia, with long-term current use of insulin (HCC) EGFR Routine 11/25/2024 7:58 AM CDT HEMOGLOBIN A1C Routine 11/25/2024 7:58 AM CDT LIPID PANEL Routine 11/25/2024 7:58 AM CDT Hyperlipidemia associated with type 2 diabetes mellitus (HCC) RETINAVUE SCANNER - OU - BOTH EYES Routine 07/30/2024 Type 2 diabetes mellitus with hyperglycemia, with long-term current use of insulin (HCC) GENITAL FLUID PAP SMEAR, THIN PREP AND HPV Routine 07/10/2015 6:00 PM CASE ASSEMBLER COLONOSCOPY 06/11/2011 12:00 AM CDT from Last 3 Months or Most Recently Relevant to Health Maintenance Results * Screening Mammogram Bilateral W Wagner (05/28/2025 1:24 PM CDT) Anatomical Region Laterality Modality Breast Bilateral Mammography Impressions 05/28/2025 2:48 PM CDT Bilateral No evidence of malignancy in either breast. OVERALL BI-RADS FINAL ASSESSMENT: 1 - Negative RECOMMENDATION: Recommend bilateral annual screening mammography. Narrative 05/28/2025 2:48 PM CDT EXAMINATION: Screening Mammogram Bilateral W Wagner: 05/28/2025 COMPARISON: Relevant prior studies available at the time of interpretation were reviewed, including the most recent mammogram on: 04/02/2023. TECHNIQUE: Mammography was performed with 2D and 3D digital breast tomosynthesis (DBT) images. CAD was utilized. BREAST PARENCHYMAL COMPOSITION: The breasts are almost entirely fatty. FINDINGS: Bilateral There is no suspicious mass, calcification, or architectural distortion in either breast.There is a biopsy marker clip in the left breast. There are benign calcifications in both breasts. Jc Gustafson MD IMG MAMMO PROCEDURES Final Result * Hepatitis C antibody Blood (02/12/2025 11:07 AM CDT) Hep C Ab Nonreactive Nonreactive Comment: Interpretive Data Nonreactive: Antibodies to HCV not detected. Does NOT exclude the possibility of recent exposure to HCV. Equivocal: Equivocal for HCV antibodies. Supplemental molecular testing will be automatically performed to determine infection status in accordance with current CDC screening recommendations. Reactive: Positive for HCV antibodies. This may represent current or past HCV infection. Supplemental molecular testing will be automatically performed to determine current infection status in accordance with current CDC screening recommendations. Interpretive data was last revised on 2019. Testing performed by: [facility], [address] [place] [address], [place]., [address] Blood 02/12/2025 11:0 7 AM CDT 02/12/2025 7:13 PM CDT Jc Gustafson MD LAB MICROBIOLOGY - GENERAL ORDERABLES Final Result [facility] [id number] [facility] Department [place] [address] * (ABNORMAL) Albumin Creatinine Ratio, Urine (01/27/2025 1:52 PM CDT) Albumin Ur 2,176.2 mg/L Comment: Interpretive Data No reference range established. Current interpretive data was last revised 2019. Testing performed by: [facility], [address] [place] [address]., [id number] Creatinine Ur 48.6 mg/dL [facility] Comment: Interpretive Data No reference range established. Current interpretive data was last revised 2019. Testing performed by: [facility], [address] [place] [address]., [id number] Albumin Creatinine Ratio, Ur 4,478(H) 1 - 29 mg/g [facility] Comment:Testing performed by : [facility], [address] [place] [address]., [id number] Urine 01/27/2025 1:52 PM CDT 01/27/2025 8:16 PM CDT us Twila Hsu NP LAB URINE ORDERABLES Final Resu lt [address] Department [place] [address] * eGFR (11/25/2024 7:58 AM CDT) eGFR 68 >=60 mL/min/1. 73 m2 Comment: Interpretive Data Reference Interval Normal >/= 90 mL/min/1.73m2 Mildly decreased* 60 - 89 mL/min/1.73m2 Mildly to moderately decreased 45 - 59 mL/min/1.73m2 Moderately to severely decreased 30 - 44 mL/min/1.73m2 Severely decreased 15 - 29 mL/min/1.73m2 Kidney Failure < 15 mL/min/1.73m2 *Relative to young adult level Estimated glomerular filtration rate is determined by the 2020 CKD-EPI equation recommended by the National Kidney Foundation (A Unifying Approach to GFR Estimation: Recommendations of the NKF-ASK Task Force on Reassessing the Inclusion of Race in Diagnosing Kidney Disease, JASN 2020). The CKD-EPI equation should not be used for patients with unstable renal function and has not been validated in children and those over 70. Current interpretive data was last reviewed 2021. Blood 11/25/2024 7:58 AM CDT 11/25/2024 8:11 AM CDT Wero Segundo MD LAB BLOOD ORDERABLES Final Re sult Performing Organization Address [facility] de Phone Number [facility] ([place]) [address] [place] [address] [place] [address] * (ABNORMAL) Hemoglobin A1c (11/25/2024 7:58 AM CDT) Hgb A1C 7.6(H) 4.0 - 5.6 % Estimated Average Glucose 171 mg/dL [facility] ([place]) Comment: The ADA recommends reporting an estimated Average Glucose (eAG) with all Hemoglobin A1c results using the equation derived from a study of 507 normal and diabetic adults. Minority populations were underrepresented and children were not included. (Diabetes Care 31:9859-8719, 2008). The eAG is not equivalent to a fasting glucose. Blood 11/25/2024 7:58 AM CDT 11/25/2024 8:11 AM CDT Wero Segundo MD LAB BLOOD ORDERABLES Final Re sult Performing Organization Address [facility] de Phone Number [facility] ([place]) [address] [place] [phone] * (ABNORMAL) Lipid panel (11/25/2024 7:58 AM CDT) Cholesterol 158 30 - 199 mg/dL Comment: Interpretive Data Ages < or = 19 years Acceptable: <170 mg/dL Borderline high: 170-199 mg/dL High: >or= 200 mg/dL Ages > or = 20 years Desirable: <200 mg/dL Borderline high: 200-239 mg/dL High: >or= 240 mg/dL Literature References: 1. Expert Panel on Integrated Guidelines for Cardiovascular Health and Risk Reduction in Children and Adolescents. Pediatrics 2011;128:S213 2. NCEP Expert Panel. Circulation 2004;110:227 Current Interpretive Data was last revised on 2018. Triglycerides 150(H) <=149 mg/dL [facility]) Comment: Interpretive Data Ages < or = 9 years Acceptable: <75 mg/dL Borderline high: 75-99 mg/dL High: >or= 100 mg/dL Ages 10 to 20 years Acceptable: <90 mg/dL Borderline high: 90-129 mg/dL High: >or= 130 mg/dL Ages > or = 20 years Desirable: <150 mg/dL Borderline high: 150-199 mg/dL High: 200-499 mg/dL Very high: >or= 499 mg/dL Literature References: 1. Expert Panel on Integrated Guidelines for Cardiovascular Health and Risk Reduction in Children and Adolescents. Pediatrics 2011;128:S213 2. NCEP Expert Panel. Circulation 2003;110:227 Current Interpretive Data was last revised on 2018. HDL 87 >=40 mg/dL [facility] ([place]) Comment: Interpretive Data Ages < or = 19 years Acceptable: >45 mg/dL Borderline low: 40-45 mg/dL Low: <40 mg/dL Ages > or = 20 years Desirable: >or= 60 mg/dL Low: <40 mg/dL Literature References: 1. Expert Panel on Integrated Guidelines for Cardiovascular Health and Risk Reduction in Children and Adolescents. Pediatrics 2011;128:S213 2. NCEP Expert Panel. Circulation 2003;110:227 Current Interpretive Data was last revised on 2018. LDL, calculated 47 <=129 mg/dL [facility]) Comment: Interpretive Data Ages < or = 19 years Acceptable: <110 mg/dL Borderline high: 110-129 mg/dL High: >or= 130 mg/dL Ages > or = 20 years Optimal: <100 mg/dL Near optimal: 100-129 mg/dL Borderline high: 130-159 mg/dL High: >160 mg/dL Calculated using the Perrin LDL-C estimating equation. This equation was implemented on 2024. Prior to this date LDL-C was estimated using the Friedewald equation. Literature References: 1. Expert Panel on Integrated Guidelines for Cardiovascular Health and Risk Reduction in Children and Adolescents. Pediatrics 2011;128:S213 2. NCEP Expert Panel. Circulation 2004;110:227 3. Aydin Smith et al. ANIBAL Cardiol. 2019January 07;5(5):540-548. doi: [email or web address] Current Interpretive Data was last revised on 2024. Non-HDL Cholesterol 71 mg/dL SHANEKA DOWLING ([place]) Comment: Interpretive Data Ages < or = 19 years Acceptable: <120 mg/dL Borderline high: 120-144 mg/dL High: >145 mg/dL Ages > or = 20 years When triglycerides are >200 mg/dL, Non-HDL cholesterol is a secondary target of therapy with treatment goals that are 30 mg/dL greater than the LDL cholesterol target. Literature References: 1. Expert Panel on Integrated Guidelines for Cardiovascular Health and Risk Reduction in Children and Adolescents. Pediatrics 2011;128:S213 2. NCEP Expert Panel. Circulation 2004;110:227 Current Interpretive Data was last revised on 2018. Chol/HDL ratio 2 DEVIN DOWLING ([place]) Blood 11/25/2024 7:58 AM CDT 11/25/2024 8:11 AM CDT us Ever Lopez ADMINISTRATIVE RESIDENT LAB BLOOD ORDERABLES Final R esult SHANEKA NITESH ([place]) 1 [facility] [place] [address] * RetinaVue Scanner - OU - Both Eyes (07/30/2024) Anatomical Region Laterality Modality Head Fundus Photograp hy 07/30/2024 us Twila Hsu NP OPHTH PHOTOGRAPHY Edited Result - Final * Genital fluid pap smear, thin prep and HPV (07/10/2015 6:00 PM CASE ASSEMBLER) Clinical information SEE NOTE HISTORICAL RESULTS Comment:Information not prov ided LMP SEE NOTE HISTORICAL RESULTS Comment:05/2015 Previous Pap SEE NOTE HISTORI DALLIN RESULTS Comment:INFORMATION NOT PROV IDED Previous biopsy SEE NOTE HIST ORICAL RESULTS Comment:INFORMATION NOT PROV IDED Referral specimen source SEE NOTE HISTORICAL RESULTS Comment:Cervix, Endocervix Statement of adequacy SEE NOTE HISTORICAL RESULTS Comment: Satisfactory for evaluation. Endocervical/transformation zone component present. Referral specimen, interp SEE NOTE HISTORICAL RESULTS Comment:Negative for intraep ithelial lesion or malignancy. Variable comment SEE NOTE HIS TORICAL RESULTS Comment: This case could not be evaluated with computer assisted technology. The slide was manually screened according to routine procedures. Human papillomavirus RNA, High Risk E6/E7 Not Detected Not Detected HISTORICAL RESULTS Comment: This test was performed using the APTIMA HPV Assay ([employer] This assay detects E6/E7 viral messenger RNA (mRNA) from 14 high-risk HPV types (16,18,31,33,35,39,45,51,52,56,58,59,66,68). REPORT COMMENT: MELISSA GUIDRY Genital 07/10/2015 6:00 PM CASE ASSEMBLER Narrative HISTORICAL RESULTS - 07/14/2015 10:00 AM CASE ASSEMBLER Test performed at [address] [address] Director: JOSH WHITE MD us Historical Provider LAB CYTOLOGY ORDERABLES F inal Result HISTORICAL RESULTS * COLONOSCOPY (06/11/2011 12:00 AM CDT) Anatomical Region Laterality Modality Other Narrative 06/11/2011 12:00 AM CDT Ordered by an unspecified provider. Procedure Note Provider, MD Michelle - 06/11/2011 12:00 AM CDT PROCEDURE REPORT Patient: AIDEN WEBB Account: [id number] Room No: : 1975 Patient Type: [facility] Attend.: Leatha Recinos M.D. Admit Date: 06/11/2011 Dict.: Leatha Recinos M.D. Disch. Date: NAME OF PROCEDURE: Colonoscopy with biopsy. INDICATION: Chronic diarrhea, chronic abdominal pain, hematochezia. DATE OF PROCEDURE: 06/11/2011. PRIMARY CARE PHYSICIAN: Dr. Leyla Kelly. BRIEF HISTORY AND PHYSICAL: The patient is a 35-year-old white femalewith complaints of abdominal pain with diarrhea and episodes of bleeding per rectum with hematochezia. Almost five years history. No family historyof colon cancer. PROCEDURE: Sedation was provided by the anesthesia service. The procedureof colonoscopy, including indications and possible complications ofbleeding, infection, and perforation requiring surgery were discussed with thepatient and consent was obtained. All vital signs were monitored during the procedure. Rectal examination prior to colonoscopy was unremarkable.The scope was introduced into the rectum and advanced all the way to thececum which was identified by the ileocecal valve and appendiceal orifice.The entire visualized colon was unremarkable. No inflammatory changes noted.No polyps and no mass lesions noted. There is some areas of the colonwhere solid stool was encountered suggestive of slow gastrointestinal transit. Random cold biopsy was performed to rule out microscopic colitis. Retroflexion in the rectum was unremarkable. IMPRESSION: Normal colonoscopy. RECOMMENDATIONS: 1. Follow pathology report. 2. Trial of probiotics such as Activa yogurt. Symptomatic treatmentis recommended. Daily fiber supplements is recommended. Sienna Guzmán/bijal TD: 06/12/2011 07:52 CC: Leyla Kelly M.D. PROCEDURE REPORT Authenticated by Leatha Recinos MD On 06/12/2011 02:22:53 PM Historical Provider ENDOSCOPY PROCEDURES Nuris l Result from Last 3 Months or Most Recently Relevant to Health Maintenance Insurance [employer] [place] [employer] [employer] [place] [employer] Advance Directives For more information, please contact: [phone] * Full Code (Latest Code Status on File) Date Activated Date Inactivated Comments 01/28/2023 2:30 PM 01/28/2023 8:53 PM Care Teams Cost Analyst Relationship Specialty Start Date End Date Jc Gustafson MD PCP - General 04/14/18 Yeimi Salinas, RN Registered Nurse Pain Management 09/03/17 Jyotsna Moore, RN Registered Nurse 12/02/17 Wero Segundo MD Consulting Physician Nephrology 06/06/18 Brayan Peters DPM Consulting Physician Orthotics 06/24/18 Nolberto Nguyen DPT [address] [place] [address] Physical Therapist Physical Therapy 06/22/22
--- OUTSIDE RECORDS SUMMARY | 2025-05-31 17:38 | XMS_ITS | Patient Health Record ---
Author Organization [facility] guido Address [address] [place] [address] Care Team Providers Care Programmer Or Analyst Name Role Phone Lennie [place], Brooke Primary Care Provider Janeen Morgan Unavailable [phone] Alvin WATER RESOURCE AGENT, Carmelita Unavailable Unavailab le Reason For Referral No Information Plan Of Treatment No Information Insurance Providers Payer Name Payer Address Payer Phone Subscriber Number Group Number Insured Name Patient Relationship to Insured Coverage Start Date Coverage End Date BCBS OF [facility] [address] [place] [address] [id number] Payton Landry Self - patient is the insured
[2025-05-31 17:42] VITALS: BP 191/82; PULSE 99; RESP 20; TEMP 36.3; O2SAT 96
[2025-05-31 19:31] LABS: Hematocrit 38.0 % (37.0-47.0); Hemoglobin 12.3 g/dL (12.0-15.0); Immature Granulocyte Percent A 0.4 % (0-0.5); Lymphocytes Absolute Auto 2.39 K/mm3 (0.9-3.2); Mean Corpuscular HGB Conc 32.4 g/dl (32-36); Mean Corpuscular Hemoglobin 29.5 pg (26-34); Mean Corpuscular Volume 91.1 fl (80-100); Nucleated Red Blood Cells Absolute Auto 0.000 K/mm3 (0.0-0.012); Nucleated Red Blood Cells Perc 0.0 % (0.0-0.2); Platelet Count Result 266 k/mm3 (150-375); Red Blood Count 4.17 M/mm3 (4.2-5.4); White Blood Count 11.2 K/mm3 (4.5-10.0)
[2025-05-31 19:42] LABS: Alanine Aminotransferase 39 U/L (6-35); Albumin Level 3.7 g/dL (3.5-5.1); Alkaline Phosphatase 111 U/L (38-126); Anion Gap 4 mmol/L (4-12); Aspartate Amino Transferase 34 U/L (14-36); Bilirubin,Total 0.3 mg/dL (0.2-1.3); Blood Urea Nitrogen 42 mg/dL (7-17); Calcium 9.3 mg/dL (8.4-10.2); Carbon Dioxide 34 mmol/L (22-30); Chloride 94 mmol/L (98-107); Estimated CRCL calculation 95 ml/min; Estimated Glomerular Filt Rate 51; Glucose 102 mg/dL (65-110); Potassium 4.2 mmol/L (3.4-5.0); Sodium 132 mmol/L (137-145); Total Protein 7.6 g/dL (6.3-8.2)
[2025-05-31 19:49] LABS: INR 0.9; Prothrombin Time 12.1 Seconds (11.1-14.7)
[2025-05-31 19:50] LABS: Partial Thromboplastin Time 26.5 Seconds (22.3-36.8)
[2025-05-31 19:51] LABS: NT Pro B Type Natriuretic Pept 369 pg/mL (19.9-100)
[2025-05-31 20:03] LABS: CRP < 0.5 mg/dL (<1.0)
--- NOTE | 2025-05-31 20:21 | ED_ITS ---
HPI - Extremity Problem General Chief complaint: Extremity Problem,Nontraumatic Stated complaint: swelling to left leg Time Seen by Provider: 05/31/25 19:04 Source: patient Mode of arrival: ambulatory Limitations: no limitations History of Present Illness HPI Narrative: This is a 49 year old female that presents to the ER for left lower extremity swelling. Ongoing over the last several weeks. Patient's PCP has increased her Lasix and added on Metolazone with little relief. Recently finished a course of antibiotics for cellulitis. Reports some dyspnea with exertiona. Denies fever, chest pain. Related Data Home Medications ?Medication ?Instructions ?Recorded ?Confirmed ?Last Taken ?Type insulin lispro 100 unit/mL 1 sliding scale dose subcut 10/26/19 Unknown History subcutaneous solution (Humalog USEASDIRECTD U-100 Insulin) Allergies Allergy/AdvReac Type Severity Reaction Status Date / Time insulin glargine Allergy Unknown Unknown Verified 05/31/25 18:43 Sulfa (Sulfonamide Allergy Unknown Unknown Verified 05/31/25 18:43 Antibiotics) zinc Allergy Unknown Unknown Verified 05/31/25 18:43 Review of Systems 2 Review of Systems: All systems reviewed & are unremarkable except as noted in HPI and below PMFSH Past Medical History Medical History (Updated 06/01/25 @ 00:13 by Norma Pagan PA-C) Arthritis Fibromyalgia Kidney disease Generalized headaches Weight gain History of gastroesophageal reflux (GERD) History of fibromyalgia History of hypertension History of diabetes mellitus Surgical History Surgical History (Updated 10/26/19 @ 15:16 by Gloria Naidu) History of appendectomy Status post arthroscopic surgery of left knee Family History Family History (Updated 10/26/19 @ 15:18 by Gloria Naidu) Other Cancer Diabetes mellitus Heart disease Hypertension Social History Social History (Updated 10/26/19 @ 15:21 by Gloria Naidu) Smoking status: Former smoker Alcohol intake: never Exam 2 Narrative: GENERAL: Well-appearing, well-nourished, and in no acute distress. HEAD: Normocephalic, atraumatic. EYES: EOMI. CHEST: Clear to auscultation. No respiratory distress. No wheezes rales or rhonchi HEART: Regular rate and rhythm. No murmur heard. Normal peripheral pulses. EXTREMITIES: Normal range of motion. Edema to the left lower extremity with overlying mild redness, weeping wounds. Normal DP pulses SKIN: Warm, dry, no rash. NEURO: No focal deficits. Alert and oriented x3. PSYCH: Normal mood and affect Course Vital Signs Vital signs: Vital Signs Temperature 97.4 F L 05/31/25 17:42 Pulse Rate 99 05/31/25 17:42 Respiratory Rate 20 05/31/25 17:42 Blood Pressure 191/82 H 05/31/25 17:42 Pulse Oximetry 96 05/31/25 17:42 Oxygen Delivery Room Air 05/31/25 17:42 Temperature 97.4 F L 05/31/25 17:42 Pulse Rate 88 06/01/25 00:25 Respiratory Rate 21 H 06/01/25 00:25 Blood Pressure 185/90 H 06/01/25 00:25 Pulse Oximetry 100 06/01/25 00:25 Oxygen Delivery Room Air 05/31/25 17:42 MDM - Extremity (Nontraumatic) MDM Narrative Medical decision making narrative: Patient presents to the ER for worsening swelling to the left lower extremity despite increase in her diuretic. Swelling with overlying redness noted to the left lower extremity. Patient is neurovascularly intact. Hypertensive upon arrival. This downtrended without intervention. She is afebrile and nontoxic appearing. CBC with mild leukocytosis to 11.2. ESR is elevated, CRP is negative. BNP is not concerningly elevated. Left lower extremity venous Doppler positive for DVT. Patient has a contrast allergy, nuclear medicine scan was performed. No evidence for PE. Patient was updated on her workup and agrees with plan of care. Will be started on anticoagulation. Will also start oral antibiotic for mild cellulitis. She was given warnings to return to the ER Differential Diagnosis Differential diagnosis: Likely cellulitis, lower extremity edema and deep vein thrombosis of lower extremity Lab Data Attestation: I reviewed the patient's lab results. 05/31/25 19:10 05/31/25 19:10 Labs: Lab Results 05/31/25 Range/Units 19:10 WBC 11.2 H (4.5-10.0) K/mm3 RBC 4.17 L (4.2-5.4) M/mm3 Hgb 12.3 (12.0-15.0) g/dL Hct 38.0 (37.0-47.0) % MCV 91.1 (80-100) fl MCH 29.5 (26-34) pg MCHC 32.4 (32-36) g/dl RDW 13.9 (11.5-14.5) % Plt Count 266 (150-375) k/mm3 MPV 9.0 (7.4-10.4) fl Immature Gran % (Auto) 0.4 (0-0.5) % Neut % (Auto) 65.9 (45.5-73.1) % Lymph % (Auto) 21.4 (18.3-44.2) % [place] % (Auto) 10.7 H (2.6-8.5) % Eos % (Auto) 1.2 (0-4.4) % Baso % (Auto) 0.4 (0.2-1.2) % Lymph # (Auto) 2.39 (0.9-3.2) K/mm3 [place] # (Auto) 1.2 H (0.1-0.6) K/mm3 Eos # (Auto) 0.1 (0-0.3) K/mm3 Baso # (Auto) 0.0 (0.0-0.1) K/mm3 Abs Immat Gran (auto) 0.05 H (0.00-0.031) K/mm3 Absolute Neuts (auto) 7.4 H (1.3-6.7) K/mm3 Absolute Nucleated RBC 0.000 (0.0-0.012) K/mm3 Nucleated RBC % 0.0 (0.0-0.2) % ESR 63 H (0-20) mm/hr PT 12.1 (11.1-14.7) Seconds INR 0.9 APTT 26.5 (22.3-36.8) Seconds Sodium 132 L (137-145) mmol/L Potassium 4.2 (3.4-5.0) mmol/L Chloride 94 L (98-107) mmol/L Carbon Dioxide 34 H (22-30) mmol/L Anion Gap 4 (4-12) mmol/L BUN 42 H (7-17) mg/dL Creatinine 1.13 H (0.7-1.0) mg/dL Estim Creat Clear Calc 95 ml/min Estimated GFR 51 L (59 - ) Glucose 102 (65-110) mg/dL Calcium 9.3 (8.4-10.2) mg/dL Total Bilirubin 0.3 (0.2-1.3) mg/dL AST 34 (14-36) U/L ALT 39 H (6-35) U/L Alkaline Phosphatase 111 (38-126) U/L C-Reactive Protein < 0.5 (<1.0) mg/dL NT-Pro-B Natriuret Pep 369 H (19.9-100) pg/mL Total Protein 7.6 (6.3-8.2) g/dL Albumin 3.7 (3.5-5.1) g/dL Imaging Data Radiologist's impression: ITS Impressions Chest X-Ray 05/31/25 19:49 IMPRESSION: 1. No acute cardiopulmonary findings given portable technique. NM pulmonary perfusion: No evidence of pulmonary embolism US venous doppler lower extremity left: FINDINGS/IMPRESSION: 1. DVT within femoral vein and profunda. 2. Remaining left leg veins patent without DVT. Critical Care Time Critical Care Time Critical Care Time: No Discharge Plan Discharge Clinical Impression: Deep vein thrombosis (DVT) of left lower extremity Qualifiers: Affected thrombotic vein of extremity: femoral Chronicity: acute Qualified Code(s): I82.412 - Acute embolism and thrombosis of left femoral vein Cellulitis Qualifiers: Site of cellulitis: extremity Site of cellulitis of extremity: lower extremity Laterality: left Qualified Code(s): L03.116 - Cellulitis of left lower limb Patient Disposition: Home Condition: Stable Instructions: Antibiotic Form, Cellulitis (ED), Deep Vein Thrombosis (ED) Additional Instructions: Return to the emergency department if you experience fever, chest pain, shortness of breath, weakness, numbness, or any other symptoms that are concerning to you. Take Xarelto and Augmentin as prescribed Follow up with your primary care doctor Patient Language: South Korean Prescriptions: New Xarelto DVT-PE Treat 30d Start 15 mg (42)- 20 mg (9) tablets,dose pack See Rx Instructions .ROUTE .COMPLEX Qty: 51 0RF Rx Instructions: take one-15 mg tablet twice daily for 21 days, then one-20 mg tablet once daily; must take with meal/food amoxicillin-pot clavulanate 875-125 mg tablet 1 tablet PO Q12H 7 Days Qty: 14 0RF No Action insulin lispro [Humalog U-100 Insulin] 100 unit/mL solution 1 sliding scale dose SUB-Q USEASDIRECTD Patient Comments: per pt's demographic sheet. Dose not stated clearly on her Humalog cyclobenzaprine 10 mg tablet 10 mg PO TID PRN (Reason: muscle spasm) Qty: 10 0RF Follow-up/Referrals: Sj,Kota Beltrán MD [Primary Care Provider, Unknown]
[2025-05-31 20:29] VITALS: BP 190/89; PULSE 94; RESP 20; O2SAT 97
[2025-05-31 22:35] VITALS: BP 183/86; PULSE 90; RESP 18; O2SAT 98
[2025-06-01] MEDS: RIVAROXABAN 15 MG TABLET PO (00:24)
[2025-06-01 00:25] VITALS: BP 185/90; PULSE 88; RESP 21; O2SAT 100
== END 2025-06-01 00:28 | disposition home or self-care (01) ==
PROVIDERS: Emergency Provider Physician Assistant; PCP Internal Medicine
DX: I82.412 Acute embolism and thrombosis of left femoral vein (principal); L03.116 Cellulitis of left lower limb; M19.90 Unspecified osteoarthritis, unspecified site; M79.7 Fibromyalgia; I12.9 Hypertensive chronic kidney disease with stage 1 through stage 4 chronic kidney disease, or unspecified chronic kidney disease; E11.22 Type 2 diabetes mellitus with diabetic chronic kidney disease; N18.9 Chronic kidney disease, unspecified; Z79.4 Long term (current) use of insulin
CPT/HCPCS: 36415; 71045; 78582; 80053; 83880; 85025; 85610; 85652; 85730; 86140; 93971; 99284; A9270; A9540; A9558